=== PATIENT | female | born 2000 | race Caucasian/White ===

== ENCOUNTER 2020-04-19 12:41 | Emergency (ER) | payer OTHER, SELFPAY ==
[2020-04-19 12:50] VITALS: BP 117/64; PULSE 83; RESP 16; TEMP 36.6; O2SAT 100
--- NOTE | 2020-04-19 13:10 | ED.URI ---
HPI - URI/Sore Throat General Chief Complaint: Upper Respiratory Infection Stated Complaint: sore throat/cough/right ear pain Time Seen by Provider: 04/19/20 13:10 Source: patient Mode of arrival: ambulatory Limitations: no limitations History of Present Illness HPI Narrative: Sunita Hackett is a 19 yo female with c/o sore throat and cough, R ear pain x 3 days. Has taken an antihistamine which did not help Related Data Home Medications Medication Instructions Recorded Confirmed medroxyprogesterone [Depo-Provera] 150 mg IM [id number] 04/19/20 04/19/20 Allergies Allergy/AdvReac Type Severity Reaction Status Date / Time No Known Allergies Allergy Verified 04/19/20 13:12 Review of Systems Review of Systems: Narrative: CONSTITUTIONAL: Denies fever, chills, sweats. EYES: Denies visual changes, redness, discharge. ENT: Denies rhinorrhea, congestion, has sore throat, R otalgia. CARDIOVASCULAR: Denies chest pain, palpitations, edema. RESPIRATORY: Denies dyspnea, wheezing, productive cough GASTROINTESTINAL: Denies abdominal pain, nausea, vomiting, diarrhea. GENITOURINARY: Denies dysuria, hematuria, abnormal discharge SKIN: Denies rash or itching. NEUROLOGIC: Denies numbness, or focal weakness. PSYCHIATRIC: Denies anxiety or depression. [facility] Family History Family History (Updated 04/19/20 @ 13:14 by Colleen Bartlett CNP) Other No active medical problems Social History Social History (Updated 04/19/20 @ 13:14 by Colleen Bartlett CNP) Smoking status: Current every day smoker Tobacco type: e-cigarettes/vaping Comments At time of signature, I agree with nursing past medical, surgical, social and family history. There is no relevant family history pertinent to the presenting complaint. Exam Narrative: Exam Narrative: GENERAL: This is a well-nourished, well-developed patient, in mild distress. HEAD: normocephalic, atraumatic. EYES: Sclera clear/white. Vision is grossly intact. EARS: External ears normal, auditory canals clear mild erythema on R, TMs normal without perforation. Hearing grossly intact. NOSE: External nose normal without nasal discharge, nares without redness, with rhinorrhea. THROAT: Mucous membranes moist, posterior pharynx erythema, no exudate NECK: Neck supple, CARDIOVASCULAR: Regular rate and rhythm without murmurs, gallops, or rubs. RESPIRATORY: Coarse to auscultation. Breath sounds equal bilaterally. No wheezes, rales, or rhonchi. GASTROINTESTINAL: Abdomen soft, SKIN: warm, intact with no suspicious lesions or rash, good texture and turgor. NEURO: awake, alert, and oriented to person, place and time. There were no obvious focal neurologic abnormalities. Steady gait EXTREMITIES: Normal range of motion. BACK: Nontender without deformity Course Course Emergency Course: Strep test-negative Started on prednisone, cough medicine, Sudafed Patient encouraged to hydrate Vital Signs Vital signs: Vital Signs Temperature 97.9 F 04/19/20 12:50 Pulse Rate 83 04/19/20 12:50 Respiratory Rate 16 04/19/20 12:50 Blood Pressure 117/64 04/19/20 12:50 Pulse Oximetry 100 04/19/20 12:50 Temperature 97.9 F 04/19/20 12:50 Pulse Rate 83 04/19/20 12:50 Respiratory Rate 16 04/19/20 12:50 Blood Pressure 117/64 04/19/20 12:50 Pulse Oximetry 100 04/19/20 12:50 MDM - URI/Sore Throat Differential Diagnosis Differential diagnosis: Likely upper respiratory infection, sinusitis, pharyngitis and other Lab Data Labs: Strep Screen Presumptive Negative *(Reference Range: Negative)* Discharge Plan Discharge Clinical Impression: Pharyngitis Qualifiers: Pharyngitis/tonsillitis etiology: unspecified etiology Qualified Code(s): J02.9 - Acute pharyngitis, unspecified Otitis media Qualifiers: Otitis media type: suppurative Chronicity: acute Laterality: right Recurrence: non-recurrent Qualified Code(s): H66.001 - Acute suppurative otitis med
== END 2020-04-19 13:30 | disposition home or self-care (01) ==
PROVIDERS: Emergency Provider Nurse Practitioner
DX: J02.9 Acute pharyngitis, unspecified (principal); H66.001 Acute suppurative otitis media without spontaneous rupture of ear drum, right ear; F17.200 Nicotine dependence, unspecified, uncomplicated
CPT/HCPCS: 87081; 87880; 99213; G0463

== ENCOUNTER 2020-05-10 12:04 | Emergency (ER) | payer SELFPAY ==
--- NOTE | 2020-05-10 12:07 | ED.GENADULT ---
HPI - General Adult General Chief complaint: Nausea/Vomiting/Diarrhea Stated complaint: Abdominal Pain Time Seen by Provider: 05/10/20 12:29 Source: patient Mode of arrival: ambulatory Limitations: no limitations History of Present Illness HPI narrative: 19-year-old female patient presents to the [facility] with complaints of nausea vomiting for the past 2 days. Patient states she vomited the other day about 8 times not having vomiting yesterday or today but is still feels somewhat nauseated. Patient states she was able to eat today and keep it down. Patient unsure if she was . Patient states that she has been off her Depakote for over 6 months now and has not had a period since January and she is sexually active. Denies any pain with urination, abdominal pain, low back pain. Denies any fevers, sore throat. Related Data Allergies Allergy/AdvReac Type Severity Reaction Status Date / Time No Known Allergies Allergy Verified 04/19/20 13:12 Review of Systems Review of Systems: Narrative: CONSTITUTIONAL: Denies fever, chills, positive sweats. EYES: Denies visual changes, redness, or discharge. ENT: Denies rhinorrhea, congestion, sore throat, or otalgia. CARDIOVASCULAR: Denies chest pain, palpitations, or edema. RESPIRATORY: Denies cough or dyspnea. GASTROINTESTINAL: Denies abdominal pain, positive nausea, vomiting, denies diarrhea. GENITOURINARY: Denies dysuria or hematuria. SKIN: Denies rash or itching. MUSCULOSKELETAL: Denies back pain, joint pain, or myalgia. NEUROLOGIC: Denies headache, numbness, or weakness. PSYCHIATRIC: Denies anxiety or depression. PMFSH Family History Family History Other No active medical problems Social History Social History Smoking status: Current every day smoker Tobacco type: e-cigarettes/vaping Comments At the time of my signature I agree with nursing past medical history, surgical, social, and family history. There is no relevant family history pertinent to the presenting complaint. Exam Narrative: Exam Narrative: GENERAL: Well-appearing, well-nourished, and in no acute distress. HEAD: Normocephalic, atraumatic. EYES: PERRLA and EOMI. ENT: Nares clear, no rhinorrhea or epistaxis. Mucous membranes moist. NECK: Supple. No lymphadenopathy CHEST: Clear to auscultation. No respiratory distress. HEART: Regular rate and rhythm. No murmur heard. Normal peripheral pulses. ABDOMEN: Soft, flat, nondistended. No guarding, rebound tenderness, or rigid. No pulsatilla masses. Hyperactive bowel sounds present in all four quadrants. No organomegaly. Negative Hough?s sign. No periumbicial tenderness. No Supra public tenderness or distension. Good femoral pulses bilaterally. No hernia noted. No scars or surface trauma. No CVA tenderness on percussion EXTREMITIES: Normal range of motion. No edema. SKIN: Warm, dry, no rash. NEURO: No focal deficits. Alert and oriented x3. Course Vital Signs Vital signs: Vital Signs Temperature 36.9 C 05/10/20 12:17 Pulse Rate 93 05/10/20 12:17 Respiratory Rate 16 05/10/20 12:17 Blood Pressure 105/61 05/10/20 12:17 Pulse Oximetry 100 05/10/20 12:17 Temperature 36.9 C 05/10/20 12:17 Pulse Rate 93 05/10/20 12:17 Respiratory Rate 16 05/10/20 12:17 Blood Pressure 105/61 05/10/20 12:17 Pulse Oximetry 100 05/10/20 12:17 Vital signs reviewed. Medical Decision Making Differential Diagnosis Differential Diagnosis: Differential diagnosis: Appendicitis, ovarian torsion, gallbladder disease, ovarian torsion, pancreatitis, lower lobe pneumonia,AAA, AMI or ACS, DKA, diverticulitis. Discussed with patient we will go ahead and do a test on her and if it is negative we will go ahead and treat her with some Zofran today. I will reassess her once this is resulted. Vital Signs Vital Signs: Vital Signs Temperature
[2020-05-10 12:17] VITALS: BP 105/61; PULSE 93; RESP 16; TEMP 36.9; O2SAT 100
[2020-05-10] MEDS: ONDANSETRON HCL ODT 4 MG TABLET PO (12:43)
== END 2020-05-10 13:07 | disposition home or self-care (01) ==
PROVIDERS: Emergency Provider Nurse Practitioner Family
DX: R11.2 Nausea with vomiting, unspecified (principal); F17.200 Nicotine dependence, unspecified, uncomplicated
CPT/HCPCS: 81025; 99213; A9270; G0463

== ENCOUNTER 2021-07-02 12:21 | Emergency (ER) | payer OTHER, SELFPAY ==
[2021-07-02 12:27] VITALS: BP 118/71; PULSE 93; RESP 16; TEMP 36.6; O2SAT 98
[2021-07-02 12:36] VITALS: BP 118/71; PULSE 93; RESP 16; TEMP 36.6; O2SAT 98
--- NOTE | 2021-07-02 12:50 | ED.URI ---
HPI - URI/Sore Throat General Chief Complaint: Upper Respiratory Infection Stated Complaint: sore throat ears and diahhrea Time Seen by Provider: 07/02/21 12:51 Source: patient Mode of arrival: ambulatory Limitations: no limitations History of Present Illness HPI Narrative: Sunita Hackett is a 20 yo female with no PMH who comes to [facility] with complaints of sore throat and difficulty swallowing. Her sore throat started again yesterday and this morning when she woke up she had difficulties swallowing and states she had a subjective fever. Patient did not get relief toothbrush after being treated a couple weeks ago, although amoxicillin seem to work a couple weeks ago Patient does not had Covid vaccine Related Data Allergies Allergy/AdvReac Type Severity Reaction Status Date / Time No Known Allergies Allergy Verified 04/19/20 13:12 Review of Systems Review of Systems: CONSTITUTIONAL: Denies fever, chills, sweats. EYES: Denies visual changes, redness, discharge. ENT: Denies rhinorrhea, congestion, has sore throat, otalgia. CARDIOVASCULAR: Denies chest pain, palpitations, edema. RESPIRATORY: Denies dyspnea, wheezing, cough GASTROINTESTINAL: Denies abdominal pain, nausea, vomiting, diarrhea. GENITOURINARY: Denies dysuria, hematuria, abnormal discharge SKIN: Denies rash or itching. NEUROLOGIC: Denies numbness, or focal weakness. PSYCHIATRIC: Denies anxiety or depression. [facility] Past Medical History Medical History No acute medical problems Family History Family History Other No active medical problems Social History Social History Smoking status: Current every day smoker Tobacco type: e-cigarettes/vaping Comments At time of signature, I agree with nursing past medical, surgical, social and family history. There is no relevant family history pertinent to the presenting complaint. Exam Narrative: GENERAL: This is a well-nourished, well-developed patient, in mild distress. HEAD: normocephalic, atraumatic. EYES: P Sclera clear/white. Vision is grossly intact. EARS: External ears normal, auditory canals clear and without drainage, TMs normal without perforation. Hearing grossly intact. NOSE: External nose normal without nasal discharge, nares without redness, mild rhinorrhea. THROAT: Mucous membranes moist, posterior pharynx erythematous with 2+ edema NECK: Neck supple, non-tender CARDIOVASCULAR: Regular rate and rhythm without murmurs, gallops, or rubs. RESPIRATORY: Clear to auscultation. Breath sounds equal bilaterally. No wheezes, rales, or rhonchi. GASTROINTESTINAL: Abdomen soft, SKIN: warm, intact with no suspicious lesions or rash, good texture and turgor. NEURO: awake, alert, and oriented to person, place and time. There were no obvious focal neurologic abnormalities. Steady gait EXTREMITIES: Normal range of motion. BACK: Nontender without deformity Course Course Emergency Course: [facility] of sore throat and swollen Started on Zithromax since took amoxicillin 2 weeks ago Directions given to patient to get rid of tooth brush and take medication as prescribed Vital Signs Vital signs: Vital Signs Temperature 98 F 07/02/21 12:27 Pulse Rate 93 07/02/21 12:27 Respiratory Rate 16 07/02/21 12:27 Blood Pressure 118/71 07/02/21 12:27 Pulse Oximetry 98 07/02/21 12:27 Temperature 98 F 07/02/21 12:36 Pulse Rate 93 07/02/21 12:36 Respiratory Rate 16 07/02/21 12:36 Blood Pressure 118/71 07/02/21 12:36 Pulse Oximetry 98 07/02/21 12:36 MDM - URI/Sore Throat Differential Diagnosis Differential diagnosis: Likely upper respiratory infection, sinusitis, viral infection, pharyngitis and other Lab Data Labs: Strep Screen Presumptive Negative
== END 2021-07-02 13:12 | disposition home or self-care (01) ==
PROVIDERS: Emergency Provider Nurse Practitioner
DX: J02.9 Acute pharyngitis, unspecified (principal); F17.200 Nicotine dependence, unspecified, uncomplicated
CPT/HCPCS: 87081; 87880; 99213; G0463

== ENCOUNTER 2022-11-16 16:12 | Outpatient (CLI) | payer BC, SELFPAY ==
[2022-11-16 17:05] VITALS: BP 139/78; PULSE 74
[2022-11-16 17:11] LABS: Appearance Urine Slightly Cloudy (Clear); Basophils Percent Auto 0.1 % (0.2-1.2); Bilirubin Urine Negative (Negative); Blood Urine Negative (Negative); Color Urine Light Yellow (Yellow); Eosinophils Absolute Auto 0.1 K/mm3 (0-0.3); Eosinophils Percent Auto 0.8 % (0-4.4); Glucose Urine UA Negative (Negative); Hematocrit 32.1 % (37.0-47.0); Hemoglobin 11.1 g/dL (12.0-15.0); Immature Granulocyte Absolute 0.02 K/mm3 (0.00-0.031); Immature Granulocyte Percent A 0.3 % (0-0.5); Ketones Urine Negative (Negative); Leukocyte Esterase Ur Negative LEU/UL (NEGATIVE); Lymphocytes Absolute Auto 2.26 K/mm3 (0.9-3.2); Lymphocytes Percent Auto 28.3 % (18.3-44.2); Mean Corpuscular HGB Conc 34.6 g/dl (32-36); Mean Corpuscular Volume 95.5 fl (80-100); Mean Platelet Volume 10.4 fl (7.4-10.4); Monocytes Absolute Auto 0.7 K/mm3 (0.1-0.6); Monocytes Percent Auto 8.3 % (2.6-8.5); Neutrophils Percent Auto 62.2 % (45.5-73.1); Nitrate Urine Negative (Negative); Platelet Count Result 175 k/mm3 (150-375); Protein Urine Negative (Negative); Red Blood Count 3.36 M/mm3 (4.2-5.4); Red Cell Distribution Width 13.3 % (11.5-14.5); Specific Grav Ur 1.015 (1.001-1.035); Urobilinogen Urine 0.2 mg/dL (<2.0)
[2022-11-16 17:15] VITALS: BP 138/73; PULSE 75
[2022-11-16 17:15] LABS: Add Urine Microscopic? YES; Amorphous Sediment Urine Few; Bacteria Urine Trace /hpf; RBC Urine 0-2 /hpf (0-2); Squamous Epithelial Cell Urine Many /hpf (Few); WBC Urine 0-3 /hpf (0-3)
[2022-11-16 17:20] LABS: Alanine Aminotransferase 8 U/L (6-35); Albumin Level 3.6 g/dL (3.5-5.1); Alkaline Phosphatase 93 U/L (38-126); Anion Gap 5 mmol/L (8-16); Aspartate Amino Transferase 19 U/L (14-36); Bilirubin,Total 0.5 mg/dL (0.2-1.3); Blood Urea Nitrogen 6 mg/dL (7-17); Carbon Dioxide 26 mmol/L (22-30); Chloride 103 mmol/L (98-107); Estimated Glomerular Filt Rate > 60; Glucose 94 mg/dL (65-110); Potassium 3.4 mmol/L (3.4-5.0); Sodium 134 mmol/L (137-145); Uric Acid 4.1 mg/dL (2.5-7.5)
[2022-11-16 17:30] VITALS: BP 139/79; PULSE 82
[2022-11-16 17:32] LABS: Creatinine Urine 29.4 mg/dL; Total Protein Urine Random 19 mg/dL; Ur Ttl Prot Creatinine Ratio 0.65 mg/mg (0-0.20)
--- NOTE | 2022-11-16 18:00 | PC.NURSE ---
Constance esparza CNM reviewed tracing, PIH lab result. P/C ratio was pending but Tangela was okay for pt to go home. after pt discharged, P/C ratio came back abnormal. reported Constance Esparza CNM and 24 hour urine order received. Called pt to come back to get 24 hour urine collection kit. Pt will come back after dinner. Tangela suggested to offer pt stay for 2 hour urine collection, but pt requested to go home, give severe preeclampsia precaution. report given to in coming RN, Tana Cerna RN.
== END 2022-11-16 17:45 | disposition home or self-care (01) ==
LOC: ANHOBOP 16:33 → ANHOBPP 16:37
PROVIDERS: Advanced Practice Midwife; Visit Provider Obstetrics & Gynecology
DX: O99.891 Other specified diseases and conditions complicating pregnancy (principal); R03.0 Elevated blood-pressure reading, without diagnosis of hypertension
CPT/HCPCS: 36415; 59025; 80053; 81001; 82570; 84156; 84550; 85025; 87086; 99199

== ENCOUNTER 2022-11-16 20:22 | Observation (INO) | payer BC, SELFPAY ==
[2022-11-16 20:41] VITALS: BP 144/80; PULSE 91
[2022-11-16 20:45] VITALS: BP 140/83; PULSE 88; RESP 16; TEMP 36.3
[2022-11-16 20:47] VITALS: BMI 31.0
--- NOTE | 2022-11-16 20:51 | OBADM ---
This patient, Sunita Guy, admitted to the OB room OB Post 117 for observation. Patient/family oriented to hospital policies and general routines including ID bracelet, bed and alarms, visiting hours, pain management, procedures, bathroom and other care routines, personal items, smoking policy, room service/diet, and visiting hours. Patient/Family are encouraged to report perceived risks to care and to ask questions if they do not understand what they are told or what they should do.
[2022-11-16 21:00] VITALS: BP 142/79; PULSE 90
[2022-11-16 21:29] VITALS: BP 147/82; PULSE 76
[2022-11-16 23:10] VITALS: BP 147/73; PULSE 91
[2022-11-17] VITALS (14 sets, daily range): BP systolic 135–153; BP diastolic 68–87; PULSE 80–97; RESP 18–20; TEMP 36.5–36.6; O2SAT 97
[2022-11-17 08:20] LABS: Mean Platelet Volume 10.4 fl (7.4-10.4); Platelet Count Result 142 k/mm3 (150-375)
--- NOTE | 2022-11-17 08:25 | WPDOBADMIT ---
Obstetrics - Admit Note Admission Note: 22 y/o G1 @ 234 weeks here for elevated blood pressures. record reviewed. No pertinent additions to the history and/or any subsequent changes in the physical findings that are not consistent with the expected course of the were found. Additions to the history and/or subsequent changes in the physical findings follow. None.
[2022-11-17 08:30] LABS: Alanine Aminotransferase 8 U/L (6-35); Albumin Level 3.3 g/dL (3.5-5.1); Alkaline Phosphatase 91 U/L (38-126); Anion Gap 4 mmol/L (8-16); Aspartate Amino Transferase 22 U/L (14-36); Bilirubin,Total 0.5 mg/dL (0.2-1.3); Blood Urea Nitrogen 4 mg/dL (7-17); Calcium 8.2 mg/dL (8.4-10.2); Carbon Dioxide 26 mmol/L (22-30); Chloride 102 mmol/L (98-107); Estimated CRCL calculation 184 ml/min; Estimated Glomerular Filt Rate > 60; Glucose 78 mg/dL (65-110); Sodium 132 mmol/L (137-145)
[2022-11-17] MEDS: BETAMETHASONE SOD PHOS/ACETATE 30 MG/5 ML VIAL 12 MG IM (10:54)
[2022-11-17 14:22] LABS: Platelet Count Result 175 k/mm3 (150-375)
[2022-11-17] MEDS: ACETAMINOPHEN 500 MG TABLET 1000 MG PO (15:03)
[2022-11-17 21:13] LABS: Collection Time Urine 24 HOURS
[2022-11-17 21:22] LABS: Total Protein Urine Random 16 mg/dL
[2022-11-17 21:29] LABS: Specific Gravity Ur 1.015; Total Protein Urine 24 Hr 592 mg/24hr (28-141); Total Volume 24 Hour Urine 3700 ml
[2022-11-17 21:39] LABS: Patient Weight 180 Lbs
[2022-11-17 21:43] LABS: Creatinine Clearance Urine 220.6 ml/min (75-125); Total Volume 24 Hour Urine 3700 ml
--- NOTE | 2022-11-17 23:06 | PC.NURSE ---
Dr Hernández notified of 24 urine results and itching. Orders to Draw bile acids and patient can have Benadryl as needed.
[2022-11-18] VITALS (8 sets, daily range): BP systolic 130–145; BP diastolic 58–71; PULSE 93–103; RESP 16; TEMP 36.4; O2SAT 97–98
[2022-11-18] MEDS: diphenhydrAMINE HCl CAP 25 MG CAPSULE PO (00:45)
--- NOTE | 2022-11-18 07:00 | PC.NURSE ---
Pt is sound asleep.
--- NOTE | 2022-11-18 07:40 | PC.NURSE ---
Roxi Lester CNM in to see pt. Informed pt denies headache and visual changes this morning. Also, no itching this am. Discussed K+ level is 3.0 and pt is having some constipation. Orders received.
--- NOTE | 2022-11-18 07:40 | PM.IMHP ---
H&P: HPI History of Present Illness Date/Time: 11/18/22 07:40 pt is a at 34.2 weeks with now diagnosed preeclampsia, pt had elevated blood pressures and PCR was elevated. 24 hour urine 592. Pt also had some complaints of itching and bile acids were drawn and now pending. Pt currently denies swelling, headache, visual changes, and /or epigastric pain. Pt is awaiting second dose of celestone that will be given this am. has been complicated by history of headaches and Covid infection. 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 Pt has no known criminal justice department chair or surgical history. Chief Complaint: elevated blood pressures, occasional headache relieved with tylenol Review of Systems Review of Systems: All systems reviewed & are unremarkable except as noted in HPI and below PMFSH Past Medical History Medical History No acute medical problems Family History Family History Other No active medical problems Social History Social History Smoking status: Current every day smoker Tobacco type: e-cigarettes/vaping Meds Home Medications and Allergies Home Medications Medication Instructions Recorded Confirmed Type mv-mn no.97-folic 180 mcg-dha 25 1 tablet PO DAILY 11/16/22 11/16/22 History mg-herb no.293 25 mg chewable tablet (Alive Daily Support ) Allergies Allergy/AdvReac Type Severity Reaction Status Date / Time No Known Allergies Allergy Verified 11/16/22 20:44 Vital Signs Vital Signs - 24 hr 11/17/22 08:45 11/17/22 09:00 11/17/22 11:22 Temperature Pulse Rate 88 89 89 Respiratory Rate Blood Pressure 153/87 H 146/85 H 146/74 H Blood Pressure [Left Arm] Pulse Oximetry 11/17/22 14:23 11/17/22 17:30 11/17/22 22:21 Temperature Pulse Rate 86 97 80 Respiratory Rate Blood Pressure 135/68 137/70 141/76 H Blood Pressure [Left Arm] Pulse Oximetry 11/18/22 05:00 11/18/22 07:19 11/18/22 07:34 Temperature Pulse Rate 97 93 Respiratory Rate Blood Pressure 145/64 H 130/58 L Blood Pressure [Left Arm] Pulse Oximetry 98 11/18/22 07:39 11/17/22 09:13 11/17/22 15:03 Temperature 36.6 C Pulse Rate Respiratory Rate Blood Pressure Blood Pressure [Left Arm] 146/85 H Pulse Oximetry 98 11/17/22 17:49 11/17/22 17:49 11/17/22 23:00 Temperature 36.6 C Pulse Rate 97 Respiratory Rate 20 Blood Pressure 137/70 Blood Pressure [Left Arm] 137/70 141/76 H Pulse Oximetry 11/18/22 07:19 Temperature 36.4 C L Pulse Rate Respiratory Rate 16 Blood Pressure Blood Pressure [Left Arm] Pulse Oximetry Exam Const: General: cooperative, healthy appearing and comfortable Chest: Chest palpation & inspection: normal inspection of the chest Resp: Effort & Inspection: normal respiratory effort : General: Yes deferred Skin: General skin exam: normal color Extrem: Right lower extremity: normal to inspection Left lower extremity: normal to inspection Psych: Appearance: grossly normal H&P: Results Labs Labs: Short CBC 11/17/22 11/17/22 Range/Units 07:57 14:03 Plt Count 142 L 175 (150-375) k/mm3 BMP 11/17/22 07:57 Sodium 132 L Potassium 3.0 L Chloride 102 Carbon Dioxide 26 BUN 4 L Creatinine 0.40 L Glucose 78 Calcium 8.2 L Liver Function 11/17/22 Range/Units 07:57 Total Bilirubin 0.5 (0.2-1.3) mg/dL AST 22 (14-36) U/L ALT 8 (6-35) U/L Alkaline Phosphatase 91 (38-126) U/L Albumin 3.3 L (3.5-5.1) g/dL Assessment and Plan Assessment and plan (1) Preeclampsia: Code(s): O14.90 - Unspecified pre-eclampsia, unspecified trimester Status: Acute Plan at 34.2 weeks gestation 1. preeclampsia plan 2 x week NST testing in office PLAN 37 week IOL
[2022-11-18] MEDS: POTASSIUM CHLORIDE 20 MEQ TABLET 40 MEQ PO (08:54)
--- NOTE | 2022-11-18 08:54 | PC.NURSE ---
Pt had fallen back to sleep after breakfast until I came in with her KCL supplement.
[2022-11-18] MEDS: DOCUSATE SODIUM 100 MG CAPSULE PO (08:57)
[2022-11-18] MEDS: BETAMETHASONE SOD PHOS/ACETATE 30 MG/5 ML VIAL 12 MG IM (11:02)
--- NOTE | 2022-11-20 07:26 | PM.OBTRLD ---
OB - Triage/Final Diagnosis Visit Information Date of evaluation: 11/17/22 Reason for evaluation: other (elevated bp) Comments/Additional reasons for admission: I have assessed the risk for this patient, Sunita Varela Malena, and determined that she would benefit from observation care. Evaluation Laboratory results: Laboratory Tests 11/17/22 11/17/22 11/17/22 07:57 07:57 14:03 Plt Count 142 L 175 MPV 10.4 11.0 H Sodium 132 L Potassium 3.0 L Chloride 102 Carbon Dioxide 26 Anion Gap 4 L BUN 4 L Creatinine 0.40 L Estim Creat Clear Calc 184 Estimated GFR > 60 Glucose 78 Uric Acid 4.0 Calcium 8.2 L Total Bilirubin 0.5 AST 22 ALT 8 Alkaline Phosphatase 91 Total Protein 6.0 L Albumin 3.3 L U Random Total Protein Ur 24 Hour Volume Urine Creatinine Creatinine Clearance Ur Total Protein 24 Hr 11/17/22 11/17/22 20:56 20:56 Plt Count MPV Sodium Potassium Chloride Carbon Dioxide Anion Gap BUN Creatinine Estim Creat Clear Calc Estimated GFR Glucose Uric Acid Calcium Total Bilirubin AST ALT Alkaline Phosphatase Total Protein Albumin U Random Total Protein 16 Ur 24 Hour Volume 3700 3700 Urine Creatinine 37.0 Creatinine Clearance 220.6 H Ur Total Protein 24 Hr 592 H
[2022-11-25 12:32] LABS: Chenodeoxycholic Acid 0.6 umol/L (< OR = 3.9); Cholic Acid <0.5 umol/L (< OR = 2.8); Deoxycholic Acid 0.5 umol/L (< OR = 2.3); Total Bile Acids <1.5 umol/L (< OR = 8.3)
== END 2022-11-18 11:23 | disposition home or self-care (01) ==
PROVIDERS: Advanced Practice Midwife; Obstetrics & Gynecology; Admitting Provider Obstetrics & Gynecology; Visit Provider Obstetrics & Gynecology
DX: O14.93 Unspecified pre-eclampsia, third trimester (principal); O99.333 Smoking (tobacco) complicating pregnancy, third trimester; F17.290 Nicotine dependence, other tobacco product, uncomplicated; O26.893 Other specified pregnancy related conditions, third trimester; L29.9 Pruritus, unspecified; O99.283 Endocrine, nutritional and metabolic diseases complicating pregnancy, third trimester; E87.6 Hypokalemia; Z3A.34 34 weeks gestation of pregnancy
CPT/HCPCS: 36415; 59025; 80053; 81050; 82542; 82575; 84156; 84550; 85049; 96372; A9270; G0378; G0379; J0702

== ENCOUNTER 2022-11-18 14:23 | Observation (INO) | payer BC, SELFPAY ==
[2022-11-18] VITALS (45 sets, daily range): BP systolic 132–157; BP diastolic 70–87; PULSE 77–101; TEMP 37.2–37.4; O2SAT 94–99; BMI 30.9
--- NOTE | ~2022-11-18 | US_ITS ---
EXAMINATION: US OB limited w BPP DATE: 11/18/2022 19:28 INDICATION: TECHNIQUE: Real-time ultrasound of the pelvis was performed. COMPARISON: None. FINDINGS: There is a single living fetus in vertex presentation, longitudinal lie. The placenta is anterior. F etal heart rate is 137 beats per minute (bpm). The amniotic fluid index is 9.3 cm, which is normal. Biophysical profile performed by the technologist: breathing (30 sec sustained breathing in 30 minutes): 2 out of 2 movement (3 gross body movements in 30 minutes: 2 out of 2 tone (one episode of eldwwif-rhzevveap-xebvbbr limb movement): 2 out of 2 Amniotic fluid pocket (2 cm): 2 out of 2 Total score: 8 out of 8 IMPRESSION: 1. Single living fetus in vertex presentation. 2. Anterior placenta. 3. Biophysical profile 8 out of 8. 4. DONALD 9.3 Reviewed, dictated and finalized at location [facility]
--- NOTE | 2022-11-18 14:50 | OBADM ---
This patient, Sunita Guy, admitted to the OB room 117 for observation. Patient/family oriented to hospital policies and general routines including ID bracelet, bed and alarms, visiting hours, pain management, procedures, bathroom and other care routines, personal items, smoking policy, room service/diet, and visiting hours. Patient/Family are encouraged to report perceived risks to care and to ask questions if they do not understand what they are told or what they should do.
[2022-11-18] MEDS: ACETAMINOPHEN 500 MG TABLET 1000 MG PO (15:32)
--- NOTE | 2022-11-18 16:05 | PC.NURSE ---
Back pain worse again; bacl up to an 8 out of 10. Hasn't been an hour since Tylenol was given.
--- NOTE | 2022-11-18 16:30 | PC.NURSE ---
Back pain back down to a 5 out of 10. Pt wants to give the Tylenol and heat longer to see if any improvement. Pt to call if she wants the Flexeril before I return to her room.
[2022-11-18] MEDS: CYCLOBENZAPRINE HCL 10 MG TABLET PO (17:04)
--- NOTE | 2022-11-18 17:04 | PC.NURSE ---
Pt states back pain is fluctuating between a 5 and an 8; requesting Flexeril.
--- NOTE | 2022-11-18 17:09 | PC.NURSE ---
Pt ordered dinner.
--- NOTE | 2022-11-20 12:23 | PM.OBTRLD ---
OB - Triage/Final Diagnosis Visit Information Date of evaluation: 11/20/22 Reason for evaluation: other (elevated BP) Comments/Additional reasons for admission: I have assessed the risk for this patient, Sunita Guy, and determined that she would benefit from observation care.
== END 2022-11-18 20:25 | disposition home or self-care (01) ==
PROVIDERS: Admitting Provider Obstetrics & Gynecology; Visit Provider Obstetrics & Gynecology
DX: O16.3 Unspecified maternal hypertension, third trimester (principal); Z3A.34 34 weeks gestation of pregnancy
CPT/HCPCS: 76815; 76819; A9270; G0378; G0379

== ENCOUNTER 2022-11-19 18:56 | Outpatient (CLI) | payer BC, SELFPAY ==
[2022-11-19] VITALS (7 sets, daily range): BP systolic 146–153; BP diastolic 77–88; PULSE 70–85; BMI 31.0
--- NOTE | 2022-11-19 19:00 | OBADM ---
This patient, Sunita Guy, admitted to the OB room OB Post 115 for observation. Patient/family oriented to hospital policies and general routines including ID bracelet, bed and alarms, visiting hours, pain management, procedures, bathroom and other care routines, personal items, smoking policy, room service/diet, and visiting hours. Patient/Family are encouraged to report perceived risks to care and to ask questions if they do not understand what they are told or what they should do.
--- NOTE | 2022-11-19 19:52 | PC.NURSE ---
Dr Brasher notified of patient c/o elevated BP at home, Patient states it was in the 160's/80-90's. Informed of labs values from prior adm, orders to keep overnight. Bp's q4 while asleep, NST Q shift.
--- NOTE | 2022-11-19 22:11 | PC.NURSE ---
Patient states that her headache is getting worse and is now having some upper abd pain on her R side.
--- NOTE | 2022-11-19 22:12 | PC.NURSE ---
Dr Brasher notified of increase in headache and rating pain a 8/10 and upper R abd pain. Orders to draw labs now and pain medication ordered.
[2022-11-19] MEDS: CALCIUM CARBONATE (TUMS) 500 MG (200 MG ELEMENTAL) 400 MG PO (22:38)
[2022-11-19] MEDS: HYDROcodone/acetaminophen (*CRX) 5-325 MG TABLET 1 TAB PO (22:39)
[2022-11-19 23:03] LABS: Basophils Percent Auto 0.2 % (0.2-1.2); Eosinophils Percent Auto 0.1 % (0-4.4); Hematocrit 32.7 % (37.0-47.0); Immature Granulocyte Absolute 0.11 K/mm3 (0.00-0.031); Immature Granulocyte Percent A 0.8 % (0-0.5); Lymphocytes Percent Auto 18.9 % (18.3-44.2); Mean Corpuscular HGB Conc 33.6 g/dl (32-36); Mean Corpuscular Hemoglobin 32.6 pg (26-34); Mean Platelet Volume 11.1 fl (7.4-10.4); Monocytes Absolute Auto 1.2 K/mm3 (0.1-0.6); Monocytes Percent Auto 8.3 % (2.6-8.5); Neutrophils Absolute Auto 9.9 K/mm3 (1.3-6.7); Neutrophils Percent Auto 71.7 % (45.5-73.1); Platelet Count Result 173 k/mm3 (150-375); Red Blood Count 3.37 M/mm3 (4.2-5.4); Red Cell Distribution Width 13.4 % (11.5-14.5); White Blood Count 13.8 K/mm3 (4.5-10.0)
[2022-11-19 23:12] LABS: Alanine Aminotransferase 10 U/L (6-35); Alkaline Phosphatase 97 U/L (38-126); Anion Gap 6 mmol/L (8-16); Aspartate Amino Transferase 20 U/L (14-36); Bilirubin,Total 0.4 mg/dL (0.2-1.3); Blood Urea Nitrogen 4 mg/dL (7-17); Calcium 8.4 mg/dL (8.4-10.2); Carbon Dioxide 26 mmol/L (22-30); Chloride 104 mmol/L (98-107); Estimated CRCL calculation 184 ml/min; Estimated Glomerular Filt Rate > 60; Glucose 90 mg/dL (65-110); Sodium 136 mmol/L (137-145); Uric Acid 3.1 mg/dL (2.5-7.5)
--- NOTE | 2022-11-20 00:32 | PC.NURSE ---
Addendum entered by Annie Null RN 11/20/22 00:33: Assessed at 2330 Original Note: Patient resting with eye closed, resp even.
[2022-11-20 01:28] VITALS: BP 139/75; PULSE 75
[2022-11-20] MEDS: ACETAMINOPHEN 325 MG TABLET 650 MG PO (01:30)
--- NOTE | 2022-11-20 01:30 | PC.NURSE ---
Patient called out after waking up, states that she still has a headache currently rating per headache a 6/8, says that it is a little better than earlier. Discussed additional dose of Tylenol, patient agreeable.
--- NOTE | 2022-11-20 02:35 | PC.NURSE ---
Patient resting with eyes closed, resp even.
[2022-11-20 06:14] VITALS: BP 145/78; PULSE 78
[2022-11-20 08:04] VITALS: BP 152/84; PULSE 89; TEMP 37
[2022-11-20] MEDS: CALCIUM CARBONATE (TUMS) 500 MG (200 MG ELEMENTAL) 400 MG PO (08:04)
--- NOTE | 2022-11-20 08:37 | PM.IMHP ---
H&P: HPI History of Present Illness Date/Time: 11/20/22 08:37 Chief Complaint: Elevated blood pressures Narrative: this patient is a 22-year-old 1 at 34 and 4 /th weeks. She has been diagnosed with preeclampsia. It is mild. She did report headaches last night. They resolved with the some pain medication. She had some blood pressures at home in the 160s. Her blood pressures here in Labor and delivery during observation, extended observation. , were in the 140s-150s over 90s. she has normal laboratory evaluation for severe preeclampsia and HELLP syndrome. She had some epigastric pain that resolved with antacids. She had some swelling that is improved with rest. She is not working at home. She has a blood pressure cuff at home. She was given thorough severe preeclampsia precautions today. Reviewed the headache and vision changes associated with preeclampsia. She has short-term follow-up in 3 days. The office. Review of Systems Review of Systems: All systems reviewed & are unremarkable except as noted in HPI and below Constitutional: Constitutional: Denies chills, Denies fatigue, Denies fever(s) and Denies weakness Eyes: Eyes: Denies blurry vision, Denies change in vision, Denies loss of peripheral vision, Denies loss of vision, Denies other visual disturbances and Denies eye pain ENT: Denies vertigo, Denies dizziness, Denies hearing loss, Denies mouth pain, Denies nasal obstruction, Denies neck mass and Denies neck pain Cardiovascular: Cardiovascular: Denies chest pain, Denies diaphoresis, Denies syncope, Denies leg edema and Denies dyspnea Respiratory: Respiratory: Denies chest congestion, Denies cough, Denies hemoptysis, Denies dyspnea and Denies wheezing Gastrointestinal: Gastrointestinal: Denies abdominal pain, Denies constipation, Denies diarrhea, Denies nausea and Denies vomiting Genitourinary: Genitourinary: Denies hematuria, Denies change in libido, Denies nocturia, Denies genital lesions, Denies flank pain and Denies urinary urgency Musculoskeletal: Musculoskeletal: Denies abnormal gait, Denies back pain, Denies myalgias, Denies arthralgias, Denies joint swelling, Denies muscle weakness and Denies neck pain Integumentary/Breasts: Skin/Breast: Denies swelling, Denies breast pain, Denies breast mass, Denies dry skin, Denies nipple discharge, Denies unusual bruising and Denies jaundice Neurologic: Denies Neuro-related abnormal movements, Denies Abnormal speech present, Denies abnormal gait, Denies behavioral changes, Denies confusion, Denies vertigo, Denies dizziness, Denies syncope, Denies loss of vision, Denies memory loss, Denies convulsions and Denies weakness Psychiatric: Psychiatric: Denies abnormal sleep pattern, Denies behavioral changes, Denies change in libido, Denies confusion, Denies depression, Denies anhedonia and Denies memory loss Endocrine: Endocrine: Reports no additional endocrine complaints, Denies change in libido and Denies fatigue Hematologic/Lymphatic: Hematologic/Lymphatic: Reports no additional hematologic/lymphatic complaints Allergic/Immunologic: Allergic/Immunologic: Reports no additional allergic/immunologic complaints and Denies wheezing PMFSH Past Medical History Medical History No acute medical problems Family History Family History Other No active medical problems Social History Social History Smoking status: Current every day smoker Tobacco type: e-cigarettes/vaping Meds Home Medications and Allergies Home Medications Medication Instructions Recorded Confirmed Type mv-mn no.97-folic 180 mcg-dha 25 1 tablet PO DAILY 11/16/22 11/18/22 History mg-herb no.293 25 mg chewable tablet (Alive Daily Support ) acetaminophen 500 mg tablet 1,000 mg PO Q6H PRN Mild Pain 11/18/22
[2022-11-20 08:54] VITALS: BP 152/84; PULSE 91
== END 2022-11-20 08:55 | disposition home or self-care (01) ==
LOC: ANHOBOP 19:00 → ANHOBPP 11-20 08:41
PROVIDERS: Visit Provider Obstetrics & Gynecology
DX: O13.9 Gestational [pregnancy-induced] hypertension without significant proteinuria, unspecified trimester (principal); Z3A.00 Weeks of gestation of pregnancy not specified
CPT/HCPCS: 36415; 59025; 80053; 84550; 85025; 99199; A9270

== ENCOUNTER 2022-11-22 23:30 | Observation (INO) | payer BC, SELFPAY ==
[2022-11-22] VITALS (7 sets, daily range): BP systolic 143–153; BP diastolic 76–85; PULSE 79–88; RESP 16; TEMP 36.9
[2022-11-22 22:59] LABS: Basophils Percent Auto 0.2 % (0.2-1.2); Eosinophils Absolute Auto 0.1 K/mm3 (0-0.3); Eosinophils Percent Auto 0.6 % (0-4.4); Hematocrit 31.2 % (37.0-47.0); Hemoglobin 10.9 g/dL (12.0-15.0); Immature Granulocyte Absolute 0.05 K/mm3 (0.00-0.031); Immature Granulocyte Percent A 0.5 % (0-0.5); Lymphocytes Percent Auto 32.5 % (18.3-44.2); Mean Corpuscular HGB Conc 34.9 g/dl (32-36); Mean Corpuscular Volume 94.5 fl (80-100); Mean Platelet Volume 11.1 fl (7.4-10.4); Monocytes Absolute Auto 0.7 K/mm3 (0.1-0.6); Monocytes Percent Auto 7.3 % (2.6-8.5); Neutrophils Absolute Auto 5.6 K/mm3 (1.3-6.7); Neutrophils Percent Auto 58.9 % (45.5-73.1); Platelet Count Result 187 k/mm3 (150-375); Red Cell Distribution Width 13.3 % (11.5-14.5); White Blood Count 9.6 K/mm3 (4.5-10.0)
[2022-11-22 23:03] LABS: Appearance Urine Clear (Clear); Bilirubin Urine Negative (Negative); Blood Urine Negative (Negative); Color Urine Yellow (Yellow); Glucose Urine UA Negative (Negative); Ketones Urine Negative (Negative); Leukocyte Esterase Ur Negative LEU/UL (NEGATIVE); Nitrate Urine Negative (Negative); Protein Urine Negative (Negative); Specific Grav Ur 1.015 (1.001-1.035); Urobilinogen Urine 0.2 mg/dL (<2.0)
[2022-11-22 23:13] LABS: Alanine Aminotransferase 10 U/L (6-35); Albumin Level 3.4 g/dL (3.5-5.1); Alkaline Phosphatase 95 U/L (38-126); Anion Gap 6 mmol/L (8-16); Aspartate Amino Transferase 16 U/L (14-36); Bilirubin,Total 0.4 mg/dL (0.2-1.3); Blood Urea Nitrogen 5 mg/dL (7-17); Calcium 8.7 mg/dL (8.4-10.2); Carbon Dioxide 24 mmol/L (22-30); Chloride 103 mmol/L (98-107); Estimated Glomerular Filt Rate > 60; Glucose 133 mg/dL (65-110); Sodium 133 mmol/L (137-145); Uric Acid 3.3 mg/dL (2.5-7.5)
[2022-11-22 23:15] LABS: Creatinine Urine 31.6 mg/dL; Total Protein Urine Random 32 mg/dL; Ur Ttl Prot Creatinine Ratio 1.01 mg/mg (0-0.20)
--- NOTE | 2022-11-22 23:15 | PC.NURSE ---
Pt reportselevated BP at home of 168/90, blurred vision while at home watching TV but none now, HORNER since Wednesday and has been tking 100 mg of tylenol. Pt reports headaches 6/10 currently and last took tylenol at 1230. Pt also reports mid abd pain that comes and goes but none currently.
[2022-11-22 23:16] LABS: Bacteria Urine 2+ /hpf; RBC Urine 0-2 /hpf (0-2); Squamous Epithelial Cell Urine Many /hpf (Few); WBC Urine 0-3 /hpf (0-3)
[2022-11-22 23:18] LABS: Add Urine Microscopic? NO
--- NOTE | 2022-11-22 23:30 | PC.NURSE ---
Report given to Roxi Lester via phone. Labs, vitals signs, and symptoms reviewed with Roxi Lester. Orders to keep patient over night. Give Fioricet for headache. Take Blood pressures every hour while patient is awake and not to take vitals while patient is sleeping. Keep monitoring baby over night. Redraw labs at 0600 tomorrow morning.
[2022-11-23] VITALS (8 sets, daily range): BP systolic 133–149; BP diastolic 76–93; PULSE 79–99; BMI 31.0
[2022-11-23] MEDS: ACETAMINOPHEN/BUTALBITAL/CAFFEINE 325-50-40 MG TABLET (FIORICET) 1 TAB PO (00:13)
--- NOTE | 2022-11-23 02:00 | PC.NURSE ---
Pt is sleeping.
[2022-11-23 06:18] LABS: Basophils Percent Auto 0.2 % (0.2-1.2); Eosinophils Absolute Auto 0.1 K/mm3 (0-0.3); Eosinophils Percent Auto 0.7 % (0-4.4); Hematocrit 31.4 % (37.0-47.0); Hemoglobin 10.8 g/dL (12.0-15.0); Immature Granulocyte Absolute 0.06 K/mm3 (0.00-0.031); Immature Granulocyte Percent A 0.6 % (0-0.5); Lymphocytes Absolute Auto 3.53 K/mm3 (0.9-3.2); Lymphocytes Percent Auto 34.7 % (18.3-44.2); Mean Corpuscular HGB Conc 34.4 g/dl (32-36); Mean Corpuscular Hemoglobin 32.5 pg (26-34); Mean Corpuscular Volume 94.6 fl (80-100); Mean Platelet Volume 10.8 fl (7.4-10.4); Monocytes Absolute Auto 0.8 K/mm3 (0.1-0.6); Neutrophils Absolute Auto 5.7 K/mm3 (1.3-6.7); Neutrophils Percent Auto 55.8 % (45.5-73.1); Platelet Count Result 172 k/mm3 (150-375); Red Blood Count 3.32 M/mm3 (4.2-5.4); Red Cell Distribution Width 13.2 % (11.5-14.5); White Blood Count 10.2 K/mm3 (4.5-10.0)
[2022-11-23 06:30] LABS: Alanine Aminotransferase 9 U/L (6-35); Albumin Level 3.3 g/dL (3.5-5.1); Alkaline Phosphatase 88 U/L (38-126); Anion Gap 6 mmol/L (8-16); Aspartate Amino Transferase 20 U/L (14-36); Bilirubin,Total 0.5 mg/dL (0.2-1.3); Blood Urea Nitrogen 4 mg/dL (7-17); Calcium 8.4 mg/dL (8.4-10.2); Carbon Dioxide 22 mmol/L (22-30); Chloride 106 mmol/L (98-107); Estimated Glomerular Filt Rate > 60; Glucose 85 mg/dL (65-110); Potassium 3.5 mmol/L (3.4-5.0); Sodium 134 mmol/L (137-145); Uric Acid 3.4 mg/dL (2.5-7.5)
--- NOTE | 2022-11-23 06:39 | PC.NURSE ---
Report givent to JT Pelayo
[2022-11-23 06:54] LABS: Creatinine Urine 24.3 mg/dL; Total Protein Urine Random 21 mg/dL; Ur Ttl Prot Creatinine Ratio 0.86 mg/mg (0-0.20)
--- NOTE | 2022-11-23 06:56 | LDADM ---
This patient, Sunita Guy, was admitted to [facility] on 11/22/22 at 23:30. Plans for labor, pain management and were discussed with patient. Patient/family oriented to hospital policies and general routines including ID bracelet, bed and alarms, visiting hours, pain management, procedures, bathroom and other care routines, personal items, smoking policy, room service/diet and guest tray routines, security routines, and visiting hours. Patient/Family are encouraged to report perceived risks to care and to ask questions if they do not understand what they are told or what they should do. See OBIX for further documentation.
--- NOTE | 2022-11-23 07:58 | PM.IMHP ---
H&P: HPI History of Present Illness Date/Time: 11/23/22 07:58 Chief Complaint: preEclampsia Narrative: Sunita is a 22yo at 35.0 with known PreEclampsia who presented last night with a BP of 160/90 at home and HORNER. Overnight the HORNER improved. Denies visual changes or RUQ pain. Good FM. Received steroids a prior admission. Labs are stable. Bps here have been 140s/90s. Review of Systems Review of Systems: All systems reviewed & are unremarkable except as noted in HPI and below PMFSH Past Medical History Medical History No acute medical problems Family History Family History Other No active medical problems Social History Social History Smoking status: Current every day smoker Tobacco type: e-cigarettes/vaping Meds Home Medications and Allergies Home Medications Medication Instructions Recorded Confirmed Type mv-mn no.97-folic 180 mcg-dha 25 1 tablet PO DAILY 11/16/22 11/22/22 History mg-herb no.293 25 mg chewable tablet (Alive Daily Support ) acetaminophen 500 mg tablet 1,000 mg PO Q6H PRN Mild Pain 11/18/22 11/22/22 Rx (1-3) Or Fever Allergies Allergy/AdvReac Type Severity Reaction Status Date / Time No Known Allergies Allergy Verified 11/22/22 22:53 Vital Signs Vital Signs - 24 hr 11/22/22 22:45 11/22/22 22:42 11/22/22 23:00 Temperature 98.5 F Pulse Rate 86 84 Respiratory Rate 16 Blood Pressure 148/83 H 145/78 H Oxygen Delivery 11/22/22 23:15 11/22/22 23:30 11/22/22 23:45 Temperature Pulse Rate 79 88 80 Respiratory Rate Blood Pressure 148/76 H 143/85 H 153/84 H Oxygen Delivery 11/23/22 00:00 11/23/22 01:00 11/23/22 06:11 Temperature Pulse Rate 79 88 88 Respiratory Rate Blood Pressure 144/90 H 133/76 144/78 H Oxygen Delivery 11/23/22 06:55 11/23/22 07:00 11/23/22 07:15 Temperature Pulse Rate 85 95 87 Respiratory Rate Blood Pressure 146/87 H 143/88 H 142/89 H Oxygen Delivery 11/23/22 07:30 11/23/22 07:45 11/23/22 06:45 Temperature Pulse Rate 87 99 Respiratory Rate Blood Pressure 149/85 H 146/93 H Oxygen Delivery Room Air 11/22/22 23:04 Temperature Pulse Rate 84 Respiratory Rate Blood Pressure 145/78 H Oxygen Delivery Exam Const: General: no acute distress Resp: Effort & Inspection: normal respiratory effort Auscultation: clear to auscultation bilaterally Cardio: Rate: regular rate Rhythm: regular rhythm GI: GI Palp: Yes Soft to palpation Extrem: General: normal to inspection H&P: Results Labs Labs: Short CBC 11/22/22 11/23/22 Range/Units 22:49 06:11 WBC 9.6 10.2 H (4.5-10.0) K/mm3 Hgb 10.9 L 10.8 L (12.0-15.0) g/dL Hct 31.2 L 31.4 L (37.0-47.0) % Plt Count 187 172 (150-375) k/mm3 BMP 11/22/22 11/23/22 22:49 06:10 Sodium 133 L 134 L Potassium 3.0 L 3.5 Chloride 103 106 Carbon Dioxide 24 22 BUN 5 L 4 L Creatinine 0.40 L 0.40 L Glucose 133 H 85 Calcium 8.7 8.4 Liver Function 11/22/22 11/23/22 Range/Units 22:49 06:10 Total Bilirubin 0.4 0.5 (0.2-1.3) mg/dL AST 16 20 (14-36) U/L ALT 10 9 (6-35) U/L Alkaline Phosphatase 95 88 (38-126) U/L Albumin 3.4 L 3.3 L (3.5-5.1) g/dL Urine 11/22/22 Range/Units 22:49 Urine Color Yellow (Yellow) Urine Appearance Clear (Clear) Urine pH 7.0 (5.0-9.0) Ur Specific [place] 1.015 (1.001-1.035) Urine Protein Negative (Negative) mg/dL Urine Glucose (UA) Negative (Negative) mg/dL Assessment and Plan Assessment and plan (1) Mild preeclampsia: Code(s): O14.00 - Mild to moderate pre-eclampsia, unspecified trimester Status: Acute Plan FHT category 1 on NST this am HORNER improved, tylenol prn, neck and shoulder massage pr
--- NOTE | 2022-11-25 07:30 | PM.OBTRLD ---
OB - Triage/Final Diagnosis Visit Information Comments/Additional reasons for admission: I have assessed the risk for this patient, Sunita uGy, and determined that she would benefit from observation care. Evaluation Laboratory results: Laboratory Tests 11/22/22 11/22/22 11/22/22 22:49 22:49 22:49 WBC 9.6 RBC 3.30 L Hgb 10.9 L Hct 31.2 L MCV 94.5 MCH 33.0 MCHC 34.9 RDW 13.3 Plt Count 187 MPV 11.1 H Immature Gran % (Auto) 0.5 Neut % (Auto) 58.9 Lymph % (Auto) 32.5 [place] % (Auto) 7.3 Eos % (Auto) 0.6 Baso % (Auto) 0.2 Lymph # (Auto) 3.10 [place] # (Auto) 0.7 H Eos # (Auto) 0.1 Baso # (Auto) 0.0 Abs Immat Gran (auto) 0.05 H Absolute Neuts (auto) 5.6 Absolute Nucleated RBC 0.0 Nucleated RBC % 0.0 Sodium Potassium Chloride Carbon Dioxide Anion Gap BUN Creatinine Estim Creat Clear Calc Estimated GFR Glucose Uric Acid Calcium Total Bilirubin AST ALT Alkaline Phosphatase Total Protein Albumin Urine Color Yellow Urine Appearance Clear Urine pH 7.0 Ur Specific [place] 1.015 Urine Protein Negative Urine Glucose (UA) Negative Urine Ketones Negative Ur Blood (Man) Negative Urine Nitrate Negative Urine Bilirubin Negative Urine Urobilinogen 0.2 Ur Leukocyte Esterase Negative Urine RBC 0-2 Urine WBC 0-3 Ur Squamous Epith Cells Many H Urine Bacteria 2+ H U Random Total Protein 32 Urine Creatinine 31.6 Protein/Creat Ratio 2 1.01 H 11/22/22 11/23/22 11/23/22 22:49 06:10 06:10 WBC RBC Hgb Hct MCV MCH MCHC RDW Plt Count MPV Immature Gran % (Auto) Neut % (Auto) Lymph % (Auto) [place] % (Auto) Eos % (Auto) Baso % (Auto) Lymph # (Auto) [place] # (Auto) Eos # (Auto) Baso # (Auto) Abs Immat Gran (auto) Absolute Neuts (auto) Absolute Nucleated RBC Nucleated RBC % Sodium 133 L 134 L Potassium 3.0 L 3.5 Chloride 103 106 Carbon Dioxide 24 22 Anion Gap 6 L 6 L BUN 5 L 4 L Creatinine 0.40 L 0.40 L Estim Creat Clear Calc Not Reportable Not Reportable Estimated GFR > 60 > 60 Glucose 133 H 85 Uric Acid 3.3 3.4 Calcium 8.7 8.4 Total Bilirubin 0.4 0.5 AST 16 20 ALT 10 9 Alkaline Phosphatase 95 88 Total Protein 6.0 L 6.0 L Albumin 3.4 L 3.3 L Urine Color Urine Appearance Urine pH Ur Specific [place] Urine Protein Urine Glucose (UA) Urine Ketones Ur Blood (Man) Urine Nitrate Urine Bilirubin Urine Urobilinogen Ur Leukocyte Esterase Urine RBC Urine WBC Ur Squamous Epith Cells Urine Bacteria U Random Total Protein 21 Urine Creatinine 24.3 Protein/Creat Ratio 2 0.86 H 11/23/22 06:11 WBC 10.2 H RBC 3.32 L Hgb 10.8 L Hct 31.4 L MCV 94.6 MCH 32.5 MCHC 34.4 RDW 13.2 Plt Count 172 MPV 10.8 H Immature Gran % (Auto) 0.6 H Neut % (Auto) 55.8 Lymph % (Auto) 34.7 [place] % (Auto) 8.0 Eos % (Auto) 0.7 Baso % (Auto) 0.2 Lymph # (Auto) 3.53 H [place] # (Auto) 0.8 H Eos # (Auto) 0.1 Baso # (Auto) 0.0 Abs Immat Gran (auto) 0.06 H Absolute Neuts (auto) 5.7 Absolute Nucleated RBC 0.0 Nucleated RBC % 0.0 Sodium Potassium Chloride Carbon Dioxide Anion Gap BUN Creatinine Estim Creat Clear Calc Estimated GFR Glucose Uric Acid Calcium Total Bilirubin AST ALT Alkaline Phosphatase Total Protein Albumin Urine Color Urine Appearance Urine pH Ur Specific [place] Urine Protein Urine Glucose (UA) Urine Ketones Ur Blood (Man) Urine Nitrate Urine Bilirubin Urine Urobilinogen Ur Leukocyte Esterase Urine RBC Urine WBC Ur Squamous Epith Cells Urine Bacteria U Random Total Protein Urine Creatinine Protein/Creat Ratio 2 Final Diagnosis (1) Mild preeclampsia: Code(s):
== END 2022-11-23 08:55 | disposition home or self-care (01) ==
LOC: ANHOBOP 11-23 02:19 → ANHOBPP 11-23 08:19
PROVIDERS: Advanced Practice Midwife; Admitting Provider Obstetrics & Gynecology; Visit Provider Obstetrics & Gynecology
DX: O14.03 Mild to moderate pre-eclampsia, third trimester (principal); O99.333 Smoking (tobacco) complicating pregnancy, third trimester; F17.290 Nicotine dependence, other tobacco product, uncomplicated; Z79.1 Long term (current) use of non-steroidal anti-inflammatories (NSAID); Z79.899 Other long term (current) drug therapy; Z3A.35 35 weeks gestation of pregnancy
CPT/HCPCS: 36415; 80053; 81003; 82570; 84156; 84550; 85025; 87086; A9270; G0378; G0379

== ENCOUNTER 2022-12-07 15:45 | Inpatient (IN) | payer BC, SELFPAY ==
[2022-12-07] VITALS (27 sets, daily range): BP systolic 142–163; BP diastolic 84–102; PULSE 74–107; RESP 16; TEMP 36.3–37.4; O2SAT 95–100; BMI 31.8
--- NOTE | 2022-12-07 16:10 | LDADM ---
This patient, Sunita Guy, was admitted to Labor/Delivery/Recovery 108 on 12/07/22 at 15:45. Plans for labor, pain management and were discussed with patient. Patient/family oriented to hospital policies and general routines including ID bracelet, bed and alarms, visiting hours, pain management, procedures, bathroom and other care routines, personal items, smoking policy, room service/diet and guest tray routines, infant security routines, and visiting hours. Patient/Family are encouraged to report perceived risks to care and to ask questions if they do not understand what they are told or what they should do. See OBIX for further documentation.
[2022-12-07 16:18] LABS: Basophils Percent Auto 0.3 % (0.2-1.2); Eosinophils Absolute Auto 0.1 K/mm3 (0-0.3); Eosinophils Percent Auto 1.1 % (0-4.4); Hematocrit 32.5 % (37.0-47.0); Hemoglobin 11.4 g/dL (12.0-15.0); Immature Granulocyte Absolute 0.03 K/mm3 (0.00-0.031); Immature Granulocyte Percent A 0.4 % (0-0.5); Lymphocytes Absolute Auto 2.21 K/mm3 (0.9-3.2); Lymphocytes Percent Auto 28.1 % (18.3-44.2); Mean Corpuscular HGB Conc 35.1 g/dl (32-36); Mean Corpuscular Hemoglobin 32.8 pg (26-34); Mean Corpuscular Volume 93.4 fl (80-100); Mean Platelet Volume 11.1 fl (7.4-10.4); Monocytes Absolute Auto 0.7 K/mm3 (0.1-0.6); Monocytes Percent Auto 9.4 % (2.6-8.5); Neutrophils Absolute Auto 4.8 K/mm3 (1.3-6.7); Neutrophils Percent Auto 60.7 % (45.5-73.1); Platelet Count Result 176 k/mm3 (150-375); Red Blood Count 3.48 M/mm3 (4.2-5.4); Red Cell Distribution Width 13.3 % (11.5-14.5); White Blood Count 7.9 K/mm3 (4.5-10.0)
[2022-12-07] MEDS: DINOPROSTONE 10 MG VAG INSERT VAGINAL (16:21)
[2022-12-07 16:44] LABS: Alanine Aminotransferase 10 U/L (6-35); Albumin Level 3.5 g/dL (3.5-5.1); Alkaline Phosphatase 132 U/L (38-126); Anion Gap 7 mmol/L (8-16); Aspartate Amino Transferase 20 U/L (14-36); Bilirubin,Total 0.5 mg/dL (0.2-1.3); Blood Urea Nitrogen 5 mg/dL (7-17); Calcium 8.2 mg/dL (8.4-10.2); Carbon Dioxide 23 mmol/L (22-30); Chloride 106 mmol/L (98-107); Estimated CRCL calculation 186 ml/min; Estimated Glomerular Filt Rate > 60; Glucose 100 mg/dL (65-110); Potassium 3.5 mmol/L (3.4-5.0); Sodium 136 mmol/L (137-145); Uric Acid 4.3 mg/dL (2.5-7.5)
[2022-12-07] MEDS: LABETALOL HCL INJ 100 MG/20 ML VIAL 20 MG IV PUSH (23:02)
[2022-12-08] VITALS (79 sets, daily range): BP systolic 112–167; BP diastolic 68–104; PULSE 74–100; RESP 16–18; TEMP 36.3–36.8; O2SAT 98–100
[2022-12-08] MEDS: LACTATED RINGERS 1,000 ML 125 ML IV CONT (05:12)
[2022-12-08] MEDS: OXYTOCIN 30 UNITS/NS 500 ML 30 UNITS/500 ML BAG 6 UNITS IV CONT (05:15)
--- NOTE | 2022-12-08 05:45 | PM.OBPNLAB ---
Pain Control Date/time seen: 12/08/22 5860 Comments: I called in for update. Was told she just had 2 severe range pressures. I did ask if any others throughout the night and was told one pressure in severe range around 0400. Nursing staff states she is very uncomfortable and feels the bp may be related to that. I asked about cervical change and no change with recent exam. Pitocin at 32. Asked about IUPC and staff considered overnight but was not comfortable placing. I will call MD to discuss plan of care.
--- NOTE | 2022-12-08 07:40 | WPDOBADMIT ---
Obstetrics - Admit Note Admission Note: 22 y/o G1 admitted for induction d/t pre-eclampsia.Cervidil overnight. Cervix soft. Discussed repeat cervidil vs pitocin vs cytotec with patient and she is agreeable to proceed with cytotec. 2 severe range blood pressures last night. Discussed with Dr Brasher and labetalol protocol order was given and order given to start mag when active. Per nursing staff they have been good since. Updated Dr Brasher at 0755am and agrees with plan. record reviewed. No pertinent additions to the history and/or any subsequent changes in the physical findings that are not consistent with the expected course of the were found. Additions to the history and/or subsequent changes in the physical findings follow. None.
--- NOTE | 2022-12-08 07:55 | PM.IMHP ---
H&P: HPI History of Present Illness Date/Time: 12/08/22 07:55 Chief Complaint: Induction of labor for pre eclampsia. Review of Systems Review of Systems: All systems reviewed & are unremarkable except as noted in HPI and below Constitutional: Constitutional: Reports as per HPI and Reports no additional constitutional complaints Eyes: Eyes: Reports as per HPI ENT: Reports system reviewed and no additional complaints, except as documented Cardiovascular: Cardiovascular: Reports as per HPI Respiratory: Respiratory: Reports as per HPI Gastrointestinal: Gastrointestinal: Reports as per HPI Genitourinary: Genitourinary: Reports no additional female genitourinary complaints Musculoskeletal: Musculoskeletal: Reports no additional musculoskeletal complaints Integumentary/Breasts: Skin/Breast: Reports system reviewed and no additional complaints, except as docu Neurologic: Reports system reviewed and no additional complaints, except as documented Psychiatric: Psychiatric: Reports no additional psychiatric complaints Endocrine: Endocrine: Reports no additional endocrine complaints Hematologic/Lymphatic: Hematologic/Lymphatic: Reports no additional hematologic/lymphatic complaints Allergic/Immunologic: Allergic/Immunologic: Reports no additional allergic/immunologic complaints [facility] Past Medical History Medical History No acute medical problems Family History Family History (Updated 12/01/22 @ 15:35 by Dori Amin RN) Grandparent Diabetes mellitus Other No active medical problems Social History Social History Smoking status: Current some day smoker Tobacco type: cigarettes and e-cigarettes/vaping Substance use: never Lack of Transportation: No Lack of Food: Never True Current Housing: I Have Housing Concerned About Future Housing: No Difficulty Paying Gas/Electric Bills: No Difficulty Paying for Meds: No Currently Unemployed: YES Education: High School Diploma/GED Difficulty w/ Childcare or Family Care: No Spiritual care concerns: No Meds Home Medications and Allergies Home Medications Medication Instructions Recorded Confirmed Type mv-mn no.97-folic 180 mcg-dha 25 1 tablet PO DAILY 11/16/22 12/01/22 History mg-herb no.293 25 mg chewable tablet (Alive Daily Support ) acetaminophen 500 mg tablet 1,000 mg PO Q6H PRN Mild Pain 11/18/22 12/01/22 Rx (1-3) Or Fever cyclobenzaprine 5 mg tablet 5 mg PO TID PRN Headache 12/01/22 12/01/22 History diphenhydramine HCl 25 mg capsule 25 mg PO HS PRN Headache 12/01/22 12/01/22 History (Benadryl) Allergies Allergy/AdvReac Type Severity Reaction Status Date / Time No Known Allergies Allergy Verified 12/01/22 15:32 Vital Signs Vital Signs - 24 hr 12/07/22 16:05 12/07/22 17:39 12/07/22 17:45 Temperature Pulse Rate 100 104 H Respiratory Rate Blood Pressure 146/89 H 150/96 H Pulse Oximetry Oxygen Delivery Room Air 12/07/22 18:00 12/07/22 18:15 12/07/22 18:30 Temperature 99.4 F Pulse Rate 100 96 107 H Respiratory Rate 16 Blood Pressure 150/85 H 148/87 H 142/86 H Pulse Oximetry Oxygen Delivery 12/07/22 22:29 12/07/22 22:30 12/07/22 22:48 Temperature 97.4 F L Pulse Rate 81 78 Respiratory Rate 16 Blood Pressure 160/102 H 163/95 H Pulse Oximetry Oxygen Delivery 12/07/22 23:00 12/07/22 23:05 12/07/22 23:09 Temperature Pulse Rate 78 96 Respiratory Rate Blood Pressure 155/101 H 152/99 H Pulse Oximetry 95 Oxygen Delivery 12/07/22 23:10 12/07/22 23:14 12/07/22 23:19 Temperature Pulse Rate 87 Respiratory Rate Blood Pressure 157/87 H Pulse Oximetry 98 99 Oxygen Delivery 12/07/22 23:20 12/07/22 23:24 12/07/22 23:29 Temperature Pulse Rate 84 Respiratory Rate Blood Pressure
[2022-12-08 08:28] LABS: Rapid Plasma Reagin Non-Reactive (NonReactive)
[2022-12-08] MEDS: miSOPROStol 25 MCG TABLET BY MOUTH ×3 (09:30→17:54)
[2022-12-08] MEDS: LABETALOL HCL INJ 100 MG/20 ML VIAL 20 MG IV PUSH (21:30)
--- NOTE | 2022-12-08 21:30 | PM.OBPNLAB ---
Pain Control Date/time seen: 12/08/222129 Assessment and Plan Comments: Spoke with Dr Brasher about patient and we have decided to also start magnesium at this time instead of waiting until active. I called and gave order.
[2022-12-08] MEDS: MAGNESIUM SULF 4 GM/WATER100ML 4 GM/100 ML BAG IVPB (22:17)
[2022-12-08] MEDS: MAGNESIUM SULF 20GM/WATER500ML 500 ML 50 MG IV CONT (23:20)
[2022-12-09] VITALS (372 sets, daily range): BP systolic 93–173; BP diastolic 49–124; PULSE 82–164; RESP 16–24; TEMP 36.3–37.4; O2SAT 89–100
--- NOTE | 2022-12-09 00:05 | PM.OBPNLAB ---
Pain Control Date/time seen: 12/09/22 0005 Assessment and Plan Comments: Informed of 2 severe range pressures but staff felt was pain and movement related. Will recheck now and if elevated will call for labetalol order.
[2022-12-09] MEDS: LACTATED RINGERS 1,000 ML 125 ML IV CONT ×3 (00:37→18:00)
--- NOTE | 2022-12-09 00:41 | P.PNAN_ITS ---
Anes - Eval Pre Procedure Procedure: Labor epidural Date/Time: 12/09/22 00:41 Surgeon: Sameera Preop Diagnosis: Abdominal pain with contractions Pre Op Diagnosis: Induction of Labor Patient Data Age: 22 Gender: F Height: 1.63 m Weight: 84 kg Last Vital Signs Temp 97.4 F L 12/08/22 23:20 Pulse 86 12/09/22 00:30 Resp 16 12/08/22 23:20 BP 159/96 H 12/09/22 00:30 Pulse Ox 96 12/09/22 00:38 O2 Del Method Room Air 12/07/22 18:30 Allergies Allergy/AdvReac Type Severity Reaction Status Date / Time No Known Allergies Allergy Verified 12/01/22 15:32 Home Medications Medication Instructions Recorded Confirmed Type mv-mn no.97-folic 180 mcg-dha 25 1 tablet PO DAILY 11/16/22 12/01/22 History mg-herb no.293 25 mg chewable tablet (Alive Daily Support ) acetaminophen 500 mg tablet 1,000 mg PO Q6H PRN Mild Pain 11/18/22 12/01/22 Rx (1-3) Or Fever cyclobenzaprine 5 mg tablet 5 mg PO TID PRN Headache 12/01/22 12/01/22 History diphenhydramine HCl 25 mg capsule 25 mg PO HS PRN Headache 12/01/22 12/01/22 History (Benadryl) Laboratory Tests 12/07/22 16:00 RPR Non-reactive (NonReactive) : gestational age HCG: positive Patient hx anesthesia problems: none Family hx anesthesia problems: none Results Review: All pre-operative results and documents have been reviewed as part of the pre- operative evaluation. [facility] Past Medical History Medical History (Updated 12/09/22 @ 00:42 by Ted Jay CRNA) No acute medical problems Overweight (BMI 25.0-29.9) Preeclampsia and not yet delivered Family History Family History Grandparent Diabetes mellitus Other No active medical problems Social History Social History Smoking status: Current some day smoker Tobacco type: cigarettes and e-cigarettes/vaping Substance use: never Lack of Transportation: No Lack of Food: Never True Current Housing: I Have Housing Concerned About Future Housing: No Difficulty Paying Gas/Electric Bills: No Difficulty Paying for Meds: No Currently Unemployed: YES Education: High School Diploma/GED Difficulty w/ Childcare or Family Care: No Spiritual care concerns: No Exam Day of Procedure 12/09/22 00:41 Patient weight: overweight
[2022-12-09] MEDS: LABETALOL HCL INJ 100 MG/20 ML VIAL 20 MG IV PUSH (06:05)
[2022-12-09] MEDS: ONDANSETRON INJ 4 MG/2 ML VIAL IV PUSH ×2 (06:46→13:10)
--- NOTE | 2022-12-09 06:59 | PM.OBPNLAB ---
Pain Control Date/time seen: 12/08/22 3955 Comments: Toerating well Pelvic Exam Comments: /-3 well applied and soft Status Comments: 140 and reactive Assessment and Plan Comments: Pt doing well. Tolerating contractions. VSS Irregular contractions FHR category 1 Cervix /-3 AROM small amount of clear odorless fluid Proceed with induction Epidural when desired Anticipate
--- NOTE | 2022-12-09 07:03 | PM.OBPNLAB ---
Pain Control Date/time seen: 12/08/222119 Assessment and Plan Comments: Received phone update on 2 severe range blood pressures. Order given for labetalol per protocol.
--- NOTE | 2022-12-09 07:21 | PM.OBPNLAB ---
Pain Control Date/time seen: 12/09/22 0600 Comments: Called hospital and order given for labetalol and that I will be in to evaluate and place IUPC. Again verified no additional elevated blood pressures in addition to the one around 0400 and the 2 around 0530
[2022-12-09] MEDS: MAGNESIUM SULF 20GM/WATER500ML 500 ML 50 MG IV CONT ×2 (09:01→19:14)
[2022-12-09] MEDS: CALCIUM CARBONATE (TUMS) 500 MG (200 MG ELEMENTAL) PO (09:47)
[2022-12-09] MEDS: ACETAMINOPHEN 500 MG TABLET 1000 MG (11:27)
[2022-12-09] MEDS: AMPICILLIN 2 GM/NS 100 ML 2 GM/100 ML BAG 200 GM (11:45)
[2022-12-09] MEDS: AMPICILLIN 1 GM/NS 50 ML 1 GM/50 ML BAG IVPB ×2 (15:27→19:17)
[2022-12-09] MEDS: SODIUM CHLORIDE 0.9% IV 300 ML 600 ML I-UTERINE (15:29)
[2022-12-09] MEDS: OXYTOCIN 30 UNITS/NS 500 ML 30 UNITS/500 ML BAG 6 UNITS IV CONT (16:15)
[2022-12-09] MEDS: diphenhydrAMINE HCl INJ 50 MG/ML VIAL 25 MG IV PUSH (16:29)
[2022-12-09] MEDS: METOCLOPRAMIDE HCL INJ 10 MG/2 ML VIAL IV PUSH (16:30)
--- NOTE | 2022-12-09 18:29 | PM.OBPNLAB ---
Pain Control Date/time seen: 12/09/22 18:29 Comments: SVE 3-4/80/-2 firm, contractions adequate, c/o galvez and as given benadryl and reglan and was able to sleep discussed section as an option and pt declined at this time. Will plan to recheck at 20:30 if no significant change will discuss with Dr. Brasher, pt aware
[2022-12-09] MEDS: LABETALOL HCL 100 MG TABLET 200 MG PO (20:59)
--- NOTE | 2022-12-09 21:41 | PM.IMHP ---
H&P: HPI History of Present Illness Date/Time: 12/09/22 21:41 Chief Complaint: Term gestation Narrative: this patient is a 22-year-old primiparous female who has severe preeclampsia. She was induced. She has made very little and slow progress/cervical change. She is for half to 5 cm at this time but for the past hour she has lost her long-term variability and has only moderate ddmp-ur-mtbg variability. She denies any nausea, vomiting, fever, chills. She denies any chest pain or shortness of breath. We have agreed to perform delivery. She understands there is risk. She understands injuries may occur as result in hospitalization, more surgery, and severe illness. She understands the risk of hemorrhage and infection. Review of Systems Review of Systems: All systems reviewed & are unremarkable except as noted in HPI and below Constitutional: Constitutional: Denies chills, Denies fatigue, Denies fever(s) and Denies weakness Eyes: Eyes: Denies blurry vision, Denies change in vision, Denies loss of peripheral vision, Denies loss of vision, Denies other visual disturbances and Denies eye pain ENT: Denies vertigo, Denies dizziness, Denies hearing loss, Denies mouth pain, Denies nasal obstruction, Denies neck mass and Denies neck pain Cardiovascular: Cardiovascular: Denies chest pain, Denies diaphoresis, Denies syncope, Denies leg edema and Denies dyspnea Respiratory: Respiratory: Denies chest congestion, Denies cough, Denies hemoptysis, Denies dyspnea and Denies wheezing Gastrointestinal: Gastrointestinal: Denies abdominal pain, Denies constipation, Denies diarrhea, Denies nausea and Denies vomiting Genitourinary: Genitourinary: Denies hematuria, Denies change in libido, Denies nocturia, Denies genital lesions, Denies flank pain and Denies urinary urgency Musculoskeletal: Musculoskeletal: Denies abnormal gait, Denies back pain, Denies myalgias, Denies arthralgias, Denies joint swelling, Denies muscle weakness and Denies neck pain Integumentary/Breasts: Skin/Breast: Denies swelling, Denies breast pain, Denies breast mass, Denies dry skin, Denies nipple discharge, Denies unusual bruising and Denies jaundice Neurologic: Denies Neuro-related abnormal movements, Denies Abnormal speech present, Denies abnormal gait, Denies behavioral changes, Denies confusion, Denies vertigo, Denies dizziness, Denies syncope, Denies loss of vision, Denies memory loss, Denies convulsions and Denies weakness Psychiatric: Psychiatric: Denies abnormal sleep pattern, Denies behavioral changes, Denies change in libido, Denies confusion, Denies depression, Denies anhedonia and Denies memory loss Endocrine: Endocrine: Reports no additional endocrine complaints, Denies change in libido and Denies fatigue Hematologic/Lymphatic: Hematologic/Lymphatic: Reports no additional hematologic/lymphatic complaints Allergic/Immunologic: Allergic/Immunologic: Reports no additional allergic/immunologic complaints and Denies wheezing PMFSH Past Medical History Medical History (Updated 12/09/22 @ 21:44 by Jessica Brasher MD) No acute medical problems Overweight (BMI 25.0-29.9) Preeclampsia and not yet delivered Family History Family History Grandparent Diabetes mellitus Other No active medical problems Social History Social History Smoking status: Current some day smoker Tobacco type: cigarettes and e-cigarettes/vaping Substance use: never Lack of Transportation: No Lack of Food: Never True Current Housing: I Have Housing Concerned About Future Housing: No Difficulty Paying Gas/Electric Bills: No Difficulty Paying for Meds: No Currently Unemployed: YES Education: High School Diploma/GED Difficulty w/ Childcare or Family Care: No Spiritual care concerns: No Meds Home Medications and Allergies Home Medications
--- NOTE | 2022-12-09 22:30 | W.PM.PROC2 ---
Procedure Note - Detailed Date of Procedure 12/09/22 Pre-op Diagnosis Induction of Labor Post-op Diagnosis Same Procedure Performed Low-transverse section Surgeon Jessica Brasher MD Anesthesia Spinal Indications Nonreassuring heart tones Findings Normal gestational maternal anatomy, average size infant, normal Apgars.Very poor tone after delivery of the baby. Pitocin, Methergine, aside she resulted in tone and cessation of bleeding. Description of Procedure The patient was taken the operating room. She was prepped and draped in dorsal supine position with a leftward tilt. This was done after spinal anesthetic was applied. A low-transverse skin incision was made and carried down till of the fascia with the knife. The fascial incision was made with the knife. The fascial incision was extended laterally with Freeman scissors. The fascia was tented upward superiorly and inferiorly the rectus muscles were dissected off bluntly. The rectus muscles were the midline. The preperitoneal fat and peritoneum were dissected open bluntly at the superior aspect of the rectus muscles. The peritoneal incision was extended superior and inferior with good position of bladder. The uterine incision was made with a scalpel down to the level of the amniotic cavity. The amniotic cavity was entered bluntly. The was delivered. The cord was clamped and cut and the infant was handed off to waiting pediatric staff. Cord bloods were obtained. The placenta was removed manually. The uterus was exteriorized. The uterus was cleared of all clots, debris and membranes. The uterus was closed in 0 Vicryl running lock fashion. An imbricating over a was placed along the incision line as well. The uterus was returned to the abdomen. The gutters were cleared of all clots and debris. The fascia was closed with 0 Vicryl running fashion. The subcutaneous tissue was irrigated pinpoint bleeders were cauterized. The skin was closed with subcuticular absorbable mark. The skin incision line was covered with glue. The patient tolerated the procedure well. She has taken recovery room in stable condition. Sponge lap and needle counts were correct x2. Complications No immediate complications Condition Stable Disposition PACU
--- NOTE | 2022-12-09 23:05 | SUR.PHASEI ---
Dr. Brasher called for clarification of verbal order received at 2230 for Pitocin infusion post-op. Orders received to do what they normally do .
--- NOTE | 2022-12-09 23:07 | PC.NURSE ---
Dr. Brasher called again by this RN to clarify orders for next bag of IVF with [address] Brasher stated to just give what they normally give . Instructed Dr. Brasher there were no standard orders for a patient on Magnesium Sulfate drip who hemorrhaged. Dr. Brasher stated to give a little faster . Again noted that normal is 125 ml/hr, he then stated then give at 150 ml/hr. Orders noted for D5 1/2 NSS with 40 units of Pitocin.
[2022-12-10] VITALS (22 sets, daily range): BP systolic 112–147; BP diastolic 58–94; PULSE 83–104; RESP 16–22; TEMP 36.5–37.7; O2SAT 94–98
--- NOTE | 2022-12-10 00:53 | OBPPTRN ---
Patient transferred to post room #281 via stretcher. Support person present. Oriented to unit, room, information board, rooming in, admission packet and security measures. Patient verbalizes understanding. Pt transferred to bed using the 3B's on the maxi air, call light within reach.
[2022-12-10] MEDS: KETOROLAC 30 MG/ML VIAL (*BKC) IV PUSH (02:23)
--- NOTE | 2022-12-10 05:06 | PC.NURSE ---
Breast pump provided due to using a nipple shield. Instructions given on cleaning, care, usage, that there should be no pain, pumping schedule for milk production, collection, and storage of human milk. Parents are encouraged to record pumping schedule on the [feeding sheet/pumping log]. Patient was assessed for correct placement, flange size, to pump for comfort and nipple stretching/stimulation for adequate milk production every 3 hours (8 times in 24 hours) 1-2 times at night. Mother voiced understanding of the education shared along with mom and baby guide for additional resource information.
[2022-12-10] MEDS: MAGNESIUM SULF 20GM/WATER500ML 500 ML 50 MG ×2 (05:22→13:39)
[2022-12-10 05:24] LABS: Basophils Percent Auto 0.2 % (0.2-1.2); Eosinophils Absolute Auto 0.1 K/mm3 (0-0.3); Immature Granulocyte Absolute 0.04 K/mm3 (0.00-0.031); Immature Granulocyte Percent A 0.3 % (0-0.5); Lymphocytes Absolute Auto 1.79 K/mm3 (0.9-3.2); Lymphocytes Percent Auto 13.9 % (18.3-44.2); Mean Corpuscular HGB Conc 33.3 g/dl (32-36); Mean Corpuscular Hemoglobin 32.3 pg (26-34); Mean Corpuscular Volume 96.8 fl (80-100); Monocytes Absolute Auto 0.6 K/mm3 (0.1-0.6); Monocytes Percent Auto 4.9 % (2.6-8.5); Neutrophils Absolute Auto 10.2 K/mm3 (1.3-6.7); Neutrophils Percent Auto 79.7 % (45.5-73.1); Platelet Count Result 136 k/mm3 (150-375); Red Blood Count 2.79 M/mm3 (4.2-5.4); Red Cell Distribution Width 13.3 % (11.5-14.5); White Blood Count 12.9 K/mm3 (4.5-10.0)
[2022-12-10] MEDS: HYDROcodone/acetaminophen (*CRX) 5-325 MG TABLET 1 TAB PO ×4 (05:24→22:43)
[2022-12-10] MEDS: MULTIVIT/MIN/PREN/FOL AC/IRON TABLET 1 TAB PO (07:55)
[2022-12-10] MEDS: DOCUSATE SODIUM 100 MG CAPSULE PO ×2 (07:56→17:18)
[2022-12-10] MEDS: POLYSACCHARIDE IRON COMPLEX 150 MG CAPSULE PO ×2 (07:56→17:19)
[2022-12-10] MEDS: DEXTROSE 5%/0.45% SOD CHL 1,000 ML 125 ML IV CONT (07:56)
--- NOTE | 2022-12-10 08:05 | P.PNOB_ITS ---
OB - PN: Subj Subjective Date/time seen: 12/10/22 08:05 Patient comments: no complaints, pain well controlled, tolerating diet and flatus present [facility] baby status: doing well OB - PN: Obj Data Labs 12/10/22 04:19 12/07/22 16:23 Labs: Laboratory Results - last 24 hr 12/10/22 04:19 WBC 12.9 H RBC 2.79 L Hgb 9.0 L Hct 27.0 L MCV 96.8 MCH 32.3 MCHC 33.3 RDW 13.3 Plt Count 136 L MPV 12.0 H Immature Gran % (Auto) 0.3 Neut % (Auto) 79.7 H Lymph % (Auto) 13.9 L [place] % (Auto) 4.9 Eos % (Auto) 1.0 Baso % (Auto) 0.2 Lymph # (Auto) 1.79 [place] # (Auto) 0.6 Eos # (Auto) 0.1 Baso # (Auto) 0.0 Abs Immat Gran (auto) 0.04 H Absolute Neuts (auto) 10.2 H Absolute Nucleated RBC 0.0 Nucleated RBC % 0.0 OB - PN A/P Plan day: 1 Plan: routine care Comments: Continue magnesium x 24 hours post delivery Time Spent With Patient Time: Total time spent is greater than 50% in coordination of care (as documented) at patient's floor/unit and/or counseling patient: Time with patient: less than 15 minutes Review of Systems Review of Systems: All systems reviewed & are unremarkable except as noted in HPI and below Exam Narrative: Fundus firm. Vaginal flow controlled. Incision dry and intact. Negative homans. No redness, warmth, or pain of lower ext. Const: General: comfortable Chest: Breast/axilla inspection: normal inspection of the breasts Resp: Effort & Inspection: normal respiratory effort Auscultation: clear to auscultation bilaterally Cardio: Rate: regular rate GI: GI Palp: Yes Soft to palpation Psych: Appearance: grossly normal Affect: normal affect Attitude: event coordinator perative Thought content: Yes Normal thought content present Judgement: Good judgement present (Psych)
--- NOTE | 2022-12-10 10:29 | WPDANLDPN2 ---
Anes-Prog Note L&D Date/Time: 12/10/22 10:29 Neuro status: Neuro function grossly intact. Vital Signs: Last Vital Signs Temp 36.8 C 12/10/22 07:50 Pulse 88 12/10/22 07:50 Resp 16 12/10/22 07:50 BP 112/58 L 12/10/22 07:50 Pulse Ox 95 12/10/22 07:50 O2 Del Method Room Air 12/10/22 04:30 O2 Flow Rate 10 12/09/22 23:00 Pain score (VAS): 2 I/O: Intake & Output 12/09/22 12/10/22 12/10/22 23:59 07:59 15:59 Intake Total 0 1075 Output Total 625 Balance 2050 450 Patient feedback: Patient satisfied with anesthetic care.
--- NOTE | 2022-12-10 10:29 | WPDANLDNPN2 ---
Anes-Prog Note L&D-Neuraxial Date/Time: 12/10/22 10:29 Patient feedback: Patient satisfied with post-operative pain management.
--- NOTE | 2022-12-10 13:36 | PC.NURSE ---
[id number] Introductions were made, then consulted with patient to assess needs related to after requested. Mother led the conversation with her?plans to feed?her and the?experience so far. Resources provided for inpatient and outpatient services with the feeding sheet, mom/baby guide, business card and name written on the white board. Mother works well with her with encouragement and education. Encouraged understanding of the benefits of skin to skin (demonstrating unwrapping and placing upright on her chest), stimulating with massage touch, changing positions to encourage wakefulness, hand expression, how to watch for early feeding cues, responsive feeding, feeding on demand (aiming for 8-12 times in 24 hours, about every 2-3 hours), milk production, building/maintaining a milk supply, duration of feeding, signs of adequate intake/output and how to record on the feeding sheet. Reviewed positioning and ear, shoulder, hip alignment, supporting the breast to facilitate a deep latch, asymmetrical latch (off-center), leading with the chin with a big, open, wide gape and body close to mother. Infant latched optimally to the right breast in football/cross cradle position for a few sucks, then stops. Encouragement given as we discussed the behaviors of late . Infant was able to maintain latch without discomfort to mother for a few sucks multiple times. Nipple care reviewed with optimal latch and good positioning. Reviewed good handwashing when or touching the breast/nipples to prevent infection. Resources used to facilitate learning were used with the visual handouts, tool, mom and baby guide. Mother voiced understanding of skin to skin, stimulating with massage touch, responsive feedings, hand expressed colostrum, talking to infant to encourage if it has been 2 -2.5 hours since the start of the last , to call if infant does not latch, or if there is discomfort with . Resources provided for inpatient/outpatient with business card, feeding sheet and the mom/baby guide. Parents voiced understanding of information, demonstrated learning and will call if there is a request for assistance. Reported to the primary RN.
[2022-12-10] MEDS: IBUPROFEN 600 MG TABLET PO ×2 (13:38→19:54)
[2022-12-10] MEDS: SIMETHICONE 80 MG TAB.CHEW PO ×4 (13:38→22:43)
--- NOTE | 2022-12-10 16:27 | PC.NURSE ---
[id number] Mother requested assistance with getting her infant to latch. is sleepy and reluctant so we repositioned mother for comfort. Infant was stimulated with a diaper change of a large meconium and wet diaper, then placed skin to skin with mother and latched to the left breast for less than 5 minutes. Infant was repositioned and latched again for another 5 minutes, then placed skin to skin on mother. Once feeding cues were visualized was positioned to the right breast using football hold. Mother works well with her with encouragement. latched optimally to the right breast with good suck/swallow ratios and mother denies pain. Mother voiced understanding of skin to skin, stimulating with massage touch, responsive feedings, hand expressed colostrum, talking to to encourage if it has been 2 -2.5 hours since the start of the last , to call if does not latch, or if there is discomfort with . Reviewed stimulating breast and hormones to make milk either with effectively or pumping 8-12 times in 24 hours with 1-2 times at night. Resources provided for inpatient/outpatient with business card, feeding sheet and the mom/baby guide. Parents voiced understanding of information, demonstrated learning and will call if there is a request for assistance. Reported to the primary RN.
[2022-12-11] MEDS: IBUPROFEN 600 MG TABLET PO ×2 (03:06→15:17)
[2022-12-11] MEDS: HYDROcodone/acetaminophen (*CRX) 5-325 MG TABLET 1 TAB PO ×3 (03:07→15:17)
[2022-12-11 03:10] VITALS: BP 124/82
--- NOTE | 2022-12-11 07:36 | PM.OBPNVD ---
OB - PN: Subj Subjective Date/time seen: 12/11/22 07:36?no complaints, pain well controlled, tolerating diet and flatus present baby status: doing well OB - PN: Obj Data Labs 12/10/22 04:19 12/07/22 16:23 OB - PN A/P Plan day: 2 Plan: routine care Time Spent With Patient Time: Total time spent is greater than 50% in coordination of care (as documented) at patient's floor/unit and/or counseling patient: Review of Systems Review of Systems: All systems reviewed & are unremarkable except as noted in HPI and below Exam Narrative: Incision CDI Const: General: cooperative and healthy appearing
[2022-12-11] MEDS: POLYSACCHARIDE IRON COMPLEX 150 MG CAPSULE PO ×2 (08:26→15:17)
[2022-12-11] MEDS: MULTIVIT/MIN/PREN/FOL AC/IRON TABLET 1 TAB PO (08:27)
[2022-12-11] MEDS: DOCUSATE SODIUM 100 MG CAPSULE PO ×2 (08:27→15:17)
[2022-12-11 09:00] VITALS: BP 131/75; PULSE 73; RESP 18; TEMP 36.6; O2SAT 98
--- NOTE | 2022-12-11 10:50 | PC.NURSE ---
[id number] Mother led the conversation with her experience and plan to feed her so far and her ability to independently latch optimally without discomfort. Reminded parents to use good handwashing technique to prevent infection. Mother is feeding appropriately for growth of and understands stimulating to eat if needed. Infant has had appropriate feedings in the last 24 hours meets the outcomes for weight, output and jaundice at this time. Mother states she is confident to continue effectively breastfeed her infant at home, when to call for assistance and denies any additional assistance or education at this time. Reinforced understanding of milk production, transition of milk, signs of adequate intake, transition of stool, prevention/relief of engorgement, responsive watching for feeding cues, the different methods of stimulating infant to breastfeed 2-3 hours after the start of the last feeding, community resources and when to call a provider using the resource of the mom and baby guide. Mother voiced understanding of the education shared.
[2022-12-11 12:04] VITALS: BP 136/68; PULSE 86; RESP 16; TEMP 36.9; O2SAT 98
[2022-12-11] MEDS: SIMETHICONE 80 MG TAB.CHEW PO (14:04)
[2022-12-11 16:15] VITALS: BP 152/62; PULSE 75; RESP 16; TEMP 36.8; O2SAT 99
[2022-12-11 20:00] VITALS: BP 145/75; PULSE 88; RESP 16; TEMP 36.7; O2SAT 99
[2022-12-12 00:05] VITALS: BP 145/89
[2022-12-12] MEDS: IBUPROFEN 600 MG TABLET PO ×4 (00:05→22:25)
[2022-12-12] MEDS: HYDROcodone/acetaminophen (*CRX) 5-325 MG TABLET 1 TAB PO ×4 (00:05→22:24)
[2022-12-12] MEDS: SIMETHICONE 80 MG TAB.CHEW PO ×5 (00:05→22:25)
[2022-12-12 04:00] VITALS: BP 145/78
--- NOTE | 2022-12-12 08:53 | PM.OBPNVD ---
OB - PN: Subj Subjective Date/time seen: 12/12/22 08:53 Patient comments: no complaints and pain well controlled baby status: doing well Narrative: BPs last 24 hours 131-152/62-89. Denies PreE sx. OB - PN: Obj Data Labs 12/10/22 04:19 12/07/22 16:23 OB - PN A/P Plan day: 3 Plan: routine care and discharge home Comments: PreE precautions given. Bps mildly elevated, will have BP check at hospital in 1-2 days and at office a few days after that Time Spent With Patient Time: Total time spent is greater than 50% in coordination of care (as documented) at patient's floor/unit and/or counseling patient: Exam Narrative: NAD abdomen soft, appropriately tender, incision CDI Extremities nontender with 1+ edema
--- NOTE | 2022-12-12 09:08 | PM.OBDSVD ---
DS: Admitting Diagnosis Discharge Date 12/12/22 Admitting Diagnosis PreEclampsia at 37w DS: Discharge Diagnosis Discharge Diagnosis (1) delivery delivered: Code(s): O82 - Encounter for delivery without indication Status: Acute (2) Preeclampsia, severe: Code(s): O14.10 - Severe pre-eclampsia, unspecified trimester Status: Acute (3) Non-reassuring heart tones complicating , antepartum: Code(s): O36.8390 - Maternal care for abnormalities of the heart rate or rhythm, unspecified trimester, not applicable or unspecified Status: Acute OB - DS: Summary Hospital Course Hospital Course: Sunita was admitted for IOL for mild PreEclampsia at 37w. She received cervidil. She had severe range BPs, making her severe Preeclamptic and received magnesium for seizure prophylaxis and antihypertensives. She had a prolonged induction with cervical ripening and pitocin, and eventually had a section for intolerance of labor. Her course was uncomplicated with BPs only mildly elevated after delivery. She was discharged home in stable condition on POD 3. OB Procedures : NST, PIH Mgmt and Ultrasound OB Procedures Intrapartum: OB Procedures: : None Peripartum Data Delivery Method: Section Procedures: Procedures Operation Date: 12/09/22 22:30 Actual Procedure Side Surgeon p Section Jessica Brasher MD complications: none Status at Discharge Functional status at discharge: independent ambulation Time Spent with Patient Time attestation: Total time spent providing and/or coordinating discharge services: Exam Narrative: NAD abdomen soft, appropriately tender, incision CDI DS: Data Data Completed and Pending Pending studies at discharge: Pending at discharge 12/09/22 22:08 Surgical [PTH] Routine Discharge Plan Discharge Attending physician on discharge: Madyson Hernández Discharging Clinician: Madyson Hernández Anticipated Discharge Date/Time: 12/12/22 08:58 Patient Disposition: Home, Self-Care Activity: may shower, may drive after 2 weeks and pelvic rest Diet: regular Patient Instructions: Antibiotic Form Stand Alone Forms: General Discharge Information Follow-up/Referrals: Jessica Brasher MD [Physician] - 1 Week Discharge Medications: New oxycodone-acetaminophen [Percocet] 5-325 mg tablet 1 tablet PO Q6H PRN (Reason: pain) Qty: 30 0RF docusate sodium 100 mg Capsule 100 mg PO BID PRN (Reason: Constipation) Qty: 60 0RF polysaccharide iron complex 150 mg iron Capsule 150 mg PO QAM Qty: 60 0RF ibuprofen 600 mg Tablet 600 mg PO Q6H PRN (Reason: Cramping) Qty: 60 0RF Continued Alive Daily Support 180 mcg-25 mg- 25 mg Tablet,Chewable 1 tablet PO DAILY Discontinued diphenhydramine HCl [Benadryl] 25 mg Capsule 25 mg PO HS PRN (Reason: Headache) cyclobenzaprine [Flexeril] 5 mg Tablet 5 mg PO TID PRN (Reason: Headache) acetaminophen 500 mg Tablet 1,000 mg PO Q6H PRN (Reason: Mild Pain (1-3) Or Fever) 0RF Date of admission: 12/07/22 15:45 Primary Care Provider: Tangela Burnett Admitting Provider: Jessica Brasher Attending physician on admission: Jessica Brasher Condition: Stable
[2022-12-12] MEDS: MULTIVIT/MIN/PREN/FOL AC/IRON TABLET 1 TAB PO (09:28)
[2022-12-12] MEDS: POLYSACCHARIDE IRON COMPLEX 150 MG CAPSULE PO ×2 (09:28→16:40)
[2022-12-12] MEDS: DOCUSATE SODIUM 100 MG CAPSULE PO ×2 (09:28→16:40)
[2022-12-12 09:29] VITALS: BP 158/99; PULSE 85; RESP 18; TEMP 37; O2SAT 97
[2022-12-12 12:30] VITALS: BP 136/70; PULSE 85; RESP 18; TEMP 36.8; O2SAT 99
[2022-12-12 16:40] VITALS: BP 137/66; PULSE 81; RESP 18; TEMP 36.5; O2SAT 99
[2022-12-12 18:40] VITALS: BP 144/88; PULSE 80; RESP 18; TEMP 36.8; O2SAT 98
[2022-12-13 00:15] VITALS: BP 136/71; PULSE 84; RESP 18; TEMP 36.7; O2SAT 99
--- NOTE | 2022-12-13 01:28 | PC.NURSE ---
Daylight Savings Time For Daylight Savings Time Beginning in the Spring - Clocks are moved ahead. For [facility], the time of change occurs at 0200 hrs. Time is taken from the sports book server. This entry on the patient's chart recognizes the change in time reflected during documentation. Example: 2 entries for vital signs may be charted for 0200 hrs.
[2022-12-13 04:27] VITALS: BP 144/79; PULSE 90; RESP 18; TEMP 36.5; O2SAT 99
[2022-12-13] MEDS: DOCUSATE SODIUM 100 MG CAPSULE PO (09:33)
[2022-12-13] MEDS: POLYSACCHARIDE IRON COMPLEX 150 MG CAPSULE PO (09:33)
[2022-12-13] MEDS: SIMETHICONE 80 MG TAB.CHEW PO (09:33)
[2022-12-13] MEDS: MULTIVIT/MIN/PREN/FOL AC/IRON TABLET 1 TAB PO (09:33)
[2022-12-13 09:34] VITALS: BP 148/88; PULSE 81; RESP 16; TEMP 36.9; O2SAT 98
[2022-12-13] MEDS: HYDROcodone/acetaminophen (*CRX) 5-325 MG TABLET 1 TAB PO (09:34)
--- NOTE | 2022-12-13 10:18 | PM.OBPNVD ---
OB - PN: Subj Subjective Date/time seen: 12/13/22 10:18 Narrative: POD 4, baby ok to go now. no concerns. BPs remain mildly elevated. OB - PN: Obj Data Labs 12/10/22 04:19 12/07/22 16:23 OB - PN A/P Plan day: 4 Plan: discharge home Comments: BP check this week. Time Spent With Patient Time: Total time spent is greater than 50% in coordination of care (as documented) at patient's floor/unit and/or counseling patient:
--- NOTE | 2022-12-13 15:52 | PC.NURSE ---
1100 Patient viewed the discharge video Mother & Baby Care, The First Two Weeks . Patient was given the opportunity and encouraged to ask questions. Patient verbalized understanding of information shared and has been given the mother/baby guide for home reference.
[2022-12-15 15:50] VITALS: BP 138/96; PULSE 97; RESP 22; TEMP 37.4; O2SAT 100
== END 2022-12-13 12:57 | disposition home or self-care (01) | DRG 788 ==
LOC: ANHLDR 12-09 10:34 → ANHOB2 12-10 00:54
PROVIDERS: Admitting Provider Advanced Practice Midwife; PCP Advanced Practice Midwife; Visit Provider Obstetrics & Gynecology
PROC: 10D00Z1 Extraction of Products of Conception, Low, Open Approach (ICD-10-PCS; CPT 59514; principal; 2022-12-09 22:30)
DX: O36.8330 Maternal care for abnormalities of the fetal heart rate or rhythm, third trimester, not applicable or unspecified (principal); O14.14 Severe pre-eclampsia complicating childbirth; O99.334 Smoking (tobacco) complicating childbirth; F17.210 Nicotine dependence, cigarettes, uncomplicated; Z3A.37 37 weeks gestation of pregnancy; Z37.0 Single live birth
CPT/HCPCS: 36415; 80053; 84550; 85025; 86592; 86850; 86900; 86901; 88307; A9270; J0290; J0330; J1200; J1885; J2210; J2274; J2370; J2405; J2590; J2704; J2765; J2795; J3475; J7030; J7120

== ENCOUNTER 2023-05-01 20:50 | Emergency (ER) | payer BC, SELFPAY ==
--- NOTE | ~2023-05-01 | CT_ITS ---
EXAMINATION: CT abdomen pelvis w con DATE: 05/02/2023 02:11 INDICATION: Lower abdominal pain. Nausea and vomiting. TECHNIQUE: Computed tomography (CT) of the abdomen and pelvis was performed with 100 CC Omnipaque 350 intravenous contrast. Automated exposure control and iterative reconstruction technique were employe d. Exam dose: 389.47 mGy-cm total exam DLP. COMPARISON: None. FINDINGS: The lung bases are clear. Normal heart size. No pericardial or pleural effusion. The liver, gallbladder, bile ducts, pancreas, pancreatic duct and spleen are unremarkable. Normal morphology of the adrenal glands. No renal mass lesion or urinary tract calculus or hydroureteronephrosis is detected. There is moderat e diffuse thickening of the urinary bladder; cystitis is not excluded. The uterus and adnexal areas are unremarkable. Normal caliber of the abdominal aorta. No intraperitoneal or retroperitoneal or pelvic mass lesion or adenopathy or ascites is detected. Normal appendix. No bowel obstruction, bowel wall thickening, pneumatosis or intraperitoneal free air is detected. Small fat-containing umbilical hernia. Included skeletal structures are unremarkable. IMPRESSION: Moderate thickening of the urinary bladder wall which may be due to cystitis or and dist ention; clinical correlation with urinalysis is recommended Reviewed, dictated and finalized at [facility]. Reviewed, dictated and finalized at [facility]. IMPRESSION: Moderate thickening of the urinary bladder wall which may be due t o cystitis or and distention; clinical correlation with urinalysis is recommend ed
[2023-05-01 21:07] VITALS: BP 121/77; PULSE 78; RESP 18; TEMP 36.5; O2SAT 98
[2023-05-01 23:54] VITALS: BP 123/79; PULSE 62; RESP 14; O2SAT 100
[2023-05-02] VITALS (19 sets, daily range): BP systolic 130–156; BP diastolic 79–126; PULSE 57–71; RESP 16–17; O2SAT 96–100
[2023-05-02 00:18] LABS: Basophils Absolute Auto 0.1 K/mm3 (0.0-0.1); Basophils Percent Auto 0.5 % (0.2-1.2); Eosinophils Absolute Auto 0.3 K/mm3 (0-0.3); Eosinophils Percent Auto 2.9 % (0-4.4); Hematocrit 39.2 % (37.0-47.0); Hemoglobin 13.2 g/dL (12.0-15.0); Immature Granulocyte Absolute 0.02 K/mm3 (0.00-0.031); Immature Granulocyte Percent A 0.2 % (0-0.5); Lymphocytes Absolute Auto 5.73 K/mm3 (0.9-3.2); Lymphocytes Percent Auto 54.7 % (18.3-44.2); Mean Corpuscular HGB Conc 33.7 g/dl (32-36); Mean Corpuscular Hemoglobin 31.2 pg (26-34); Mean Corpuscular Volume 92.7 fl (80-100); Mean Platelet Volume 10.7 fl (7.4-10.4); Monocytes Absolute Auto 0.7 K/mm3 (0.1-0.6); Monocytes Percent Auto 6.3 % (2.6-8.5); Neutrophils Absolute Auto 3.7 K/mm3 (1.3-6.7); Neutrophils Percent Auto 35.4 % (45.5-73.1); Platelet Count Result 240 k/mm3 (150-375); Red Blood Count 4.23 M/mm3 (4.2-5.4); White Blood Count 10.5 K/mm3 (4.5-10.0)
[2023-05-02 00:34] LABS: Alanine Aminotransferase 11 U/L (6-35); Albumin Level 4.8 g/dL (3.5-5.1); Alkaline Phosphatase 63 U/L (38-126); Anion Gap 11 mmol/L (8-16); Aspartate Amino Transferase 23 U/L (14-36); Bilirubin,Total 0.3 mg/dL (0.2-1.3); Blood Urea Nitrogen 15 mg/dL (7-17); Calcium 9.3 mg/dL (8.4-10.2); Carbon Dioxide 26 mmol/L (22-30); Chloride 101 mmol/L (98-107); Estimated CRCL calculation 85 ml/min; Estimated Glomerular Filt Rate > 60; Glucose 73 mg/dL (65-110); Potassium 4.2 mmol/L (3.4-5.0); Sodium 138 mmol/L (137-145)
--- NOTE | 2023-05-02 00:44 | ED.GENADULT ---
HPI - General Adult General Chief complaint: [employer] <Alina Mc PA-C - Last Filed: 05/02/23 03:49> Stated complaint: retained placenta <SAL Cantu Last Filed: 05/02/23 03:49> Time Seen by Provider: 05/02/23 00:28 <SAL Cantu Last Filed: 05/02/23 03:49> Source: patient and old records reviewed <SAL Cantu Last Filed: 05/02/23 03:49> Mode of arrival: ambulatory <SAL Cantu Last Filed: 05/02/23 03:49> Limitations: no limitations <Alina Mc PA-C - Last Filed: 05/02/23 03:49> History of Present Illness HPI narrative: Patient is a 22-year-old female who presents to the ED with lower abdominal pain and vaginal bleeding. Patient reports she had a baby in December via . She states her first cycle afterwards was very foul smelling. She has had intermittent bleeding since then which has been foul-smelling. She has been previously prescribed Flagyl for BV. She then passed a strange piece of tissue vaginally and began having lower abdominal pain and cramping on . She f/u with Dr. Brasher and had an ultrasound in office which was potentially concerning for retained placenta. She was advised to follow-up with him on Wednesday for possible repeat ultrasound and possible D&C on Wednesday. Patient reports having worsening lower abdominal pain today, along with nausea and vomiting. She states she is unable to keep down any food or drink. She called the office and was referred here for further evaluation. Patient denies any fever. Denies dysuria, hematuria. <SAL Cantu Last Filed: 05/02/23 03:49> Related Data Home medications: Home Medications Medication Instructions Recorded Confirmed sertraline 50 mg tablet mg 05/02/23 <SAL Cantu Last Filed: 05/02/23 03:49> Allergies/adverse reactions: Allergies Allergy/AdvReac Type Severity Reaction Status Date / Time No Known Allergies Allergy Verified 05/02/23 00:26 <Alina Mc PA-C - Last Filed: 05/02/23 03:49> Review of Systems Review of Systems: CONSTITUTIONAL: Denies fever, chills, or sweats. CARDIOVASCULAR: Denies chest pain. RESPIRATORY: Denies dyspnea. GASTROINTESTINAL: See HPI. GENITOURINARY: See HPI. SKIN: Denies rash or itching. MUSCULOSKELETAL: Denies back pain, joint pain, or myalgia. <Alina Mc PA-C - Last Filed: 05/02/23 03:49> All systems reviewed & are unremarkable except as noted in HPI and below <Alina Mc PA-C - Last Filed: 05/02/23 03:49> PMFSH Past Medical History Medical History: Medical History No acute medical problems Overweight (BMI 25.0-29.9) Preeclampsia and not yet delivered <Alina Mc PA-C - Last Filed: 05/02/23 03:49> Family History Family History: Family History Grandparent Diabetes mellitus Other No active medical problems <Alina Mc PA-C - Last Filed: 05/02/23 03:49> Social History Social History: Social History Smoking status: Current some day smoker Tobacco type: cigarettes and e-cigarettes/vaping Substance use: never Lack of Transportation: No Lack of Food: Never True Current Housing: I Have Housing Concerned About Future Housing: No Difficulty Paying Gas/Electric Bills: No Difficulty Paying for Meds: No Currently Unemployed: YES Education: High School Diploma/GED Difficulty w/ Childcare or Family Care: No Spiritual care concerns: No <Alina Mc PA-C - Last Filed: 05/02/23 03:49> Exam Narrative: GENERAL: Well appearing, well-nourished, non-toxic, in no acute distress. HEAD: Normocephalic, atraumatic. NECK: Supple. No adenopathy, no masses. RESPIRA
[2023-05-02 00:50] LABS: Beta HCG Quantitative < 2.39 mIU/ML
[2023-05-02] MEDS: SODIUM CHLORIDE 0.9% IV 1,000 ML 999 ML IV CONT (01:22)
[2023-05-02 01:23] LABS: Appearance Urine Clear (Clear); Bilirubin Urine Negative (Negative); Blood Urine Negative (Negative); Color Urine Yellow (Yellow); Glucose Urine UA Negative (Negative); Ketones Urine Negative (Negative); Leukocyte Esterase Ur Negative LEU/UL (Negative); Nitrate Urine Negative (Negative); Protein Urine Negative (Negative); Specific Grav Ur 1.008 (1.001-1.035); Urobilinogen Urine 0.2 mg/dL (<2.0)
[2023-05-02] MEDS: MORPHINE SULFATE (*CRX) 2 MG/ML INJ IV PUSH (01:23)
[2023-05-02] MEDS: ONDANSETRON INJ 4 MG/2 ML VIAL IV PUSH ×2 (01:23→05:46)
[2023-05-02 01:44] LABS: Add Urine Microscopic? NO
[2023-05-02 02:08] LABS: Lactic Acid Reflex 0.7 mmol/L (0.7-2.0)
== END 2023-05-02 06:14 | disposition home or self-care (01) ==
PROVIDERS: Physician Assistant; Emergency Provider Emergency Medicine
DX: R10.30 Lower abdominal pain, unspecified (principal); R11.2 Nausea with vomiting, unspecified; E66.3 Overweight; Z68.25 Body mass index [BMI] 25.0-25.9, adult; F17.210 Nicotine dependence, cigarettes, uncomplicated; F17.290 Nicotine dependence, other tobacco product, uncomplicated; R93.41 Abnormal radiologic findings on diagnostic imaging of renal pelvis, ureter, or bladder
CPT/HCPCS: 36415; 74177; 80053; 81003; 83605; 84702; 85025; 96361; 96374; 96375; 96376; 99284; J2270; J2405; J7030; Q9967

== ENCOUNTER 2023-05-05 00:27 | Day surgery (SDC) | payer BC, SELFPAY ==
[2023-05-03 14:20] VITALS: BMI 23.8
--- NOTE | 2023-05-03 14:26 | PC.NURSE ---
Report to the Outpatient Waiting Room, entrance under the green pavilion located off [facility], at time 0715 on date 05/05/23. Planned Procedure Time: 0915. Time changes happen often and if your time is changed the preop area will call you the afternoon before. - You and your visitor will be asked to self-screen and do not enter if you have any COVID symptoms. - A mask is optional within the hospital at this time. Patients may have clear liquids (water, carbonated beverages, clear teas, apple juice) until 3 hours prior to surgery with a maximum of 20 ounces. - No food from midnight until time of surgery Take the following medications with a SIP of water the morning of surgery: SERTRALINE, ANTIBIOTICS DO NOT STOP ANY OF YOUR OTHER PRESCRIPTION MEDICATIONS PRIOR TO SURGERY ?EXCEPT THE FOLLOWING Medications to discontinue per physician: N/A Date to take last dose: N/A Please no make-up, nail gambian, hairspray, perfume, deodorant, or body powder the day of surgery. No jewelry (including any body piercings) or valuables the day of surgery, leave them at home. Please take a shower or bath the night before, or the morning of, surgery with an antibacterial soap. Wear comfortable, loose fitting clothing. - Jewelry must be removed prior to entering the operating room. Rings and piercings that are not removed may be cut off. - The hospital will not accept responsibility for valuables. - Please leave all valuables, including medications, at home the day of surgery. If you are going home after surgery, a licensed regional truck driver must drive you home. - NO public transportation without another adult if you receive anesthesia. - We recommend that an adult stay with you for 24 hours following discharge. - We also recommend that you do not drive, make important decision, drink alcoholic beverages, or take any drugs that were not prescribed by your health care provider for at least 24 hours after your discharge time. Follow any additional instructions given to you from your surgeon. If you or anyone in your household have experienced Covid symptoms in the past week, please notify your surgeon or the nurse liaison at the phone number below for possible testing. Telephone instructions given to PT - LAYLA READ and asked if any additional questions and then verbalized understanding. Patient advised to call surgeon office or pre surgery nurse liaison [phone] if any additional questions.
--- NOTE | 2023-05-04 14:12 | WPDANESEPPF ---
Anes - Initial Pre Proc Eval Procedure: Operation Date: 05/05/23 09:15 Proposed Procedures p Hysteroscopy, Dilation and Curettage - Jessica Brasher MD Date/Time: 05/04/23 14:12 Surgeon: Jessica Brasher MD Pre Op Diagnosis: retained placenta, 3rd stage hemorrhage Patient Data Age: 22 Gender: F Height: 1.65 m Weight: 64.9 kg Allergies Allergy/AdvReac Type Severity Reaction Status Date / Time No Known Allergies Allergy Verified 05/05/23 07:25 Home Medications Medication Instructions Recorded Confirmed Type ondansetron 4 mg disintegrating 4 mg PO Q8H PRN nausea and 05/02/23 05/03/23 Rx tablet vomiting #20 tabs doxycycline hyclate 100 mg capsule 100 mg PO BID 05/03/23 05/03/23 History metronidazole 500 mg tablet 500 mg PO BID 05/03/23 05/03/23 History sertraline 100 mg tablet 100 mg PO DAILY 05/03/23 05/03/23 History Patient hx anesthesia problems: none Family hx anesthesia problems: none Results Review: All pre-operative results and documents have been reviewed as part of the pre-operative evaluation. [facility] Past Medical History Medical History (Updated 05/04/23 @ 14:12 by Ruben Rosen DO) Anxiety Depression No acute medical problems Overweight (BMI 25.0-29.9) Preeclampsia and not yet delivered Scoliosis Family History Family History Grandparent Diabetes mellitus Other No active medical problems Social History Social History Smoking status: Current every day smoker Tobacco type: e-cigarettes/vaping Alcohol intake: never Substance use: never Substance use type: does not use Lack of Transportation: No Lack of Food: Never True Current Housing: I Have Housing Concerned About Future Housing: No Difficulty Paying Gas/Electric Bills: No Difficulty Paying for Meds: No Currently Unemployed: YES Education: High School Diploma/GED Difficulty w/ Childcare or Family Care: No Living arrangements: with family Spiritual care concerns: No Anes - Eval Final PreProcedure Day of Procedure 05/04/23 14:12 Patient weight: normal Heart: regular rate and rhythm Lungs: clear to auscultation and normal air movement Airway: Mallampati scale class II Neurological: alert and oriented Last oral intake: >/= 8 hours ASA classification: II Emergent: no Anesthetic plan: proceed Anesthesia type and monitoring: general GIVS and standard monitoring Results Review: All pre-operative results and documents have been reviewed as part of the pre-operative evaluation. Informed Consent: The patient's anesthetic plan and its attendant risks and benefits were discussed with the patient/family/POA. Questions were solicited and answers provided to the satisfaction of the patient/family/POA.
[2023-05-05] VITALS (9 sets, daily range): BP systolic 106–134; BP diastolic 58–89; PULSE 50–71; RESP 12–20; TEMP 35.6–36; O2SAT 97–100
[2023-05-05] MEDS: ACETAMINOPHEN 500 MG TABLET 1000 MG PO (07:27)
[2023-05-05] MEDS: LACTATED RINGERS 1,000 ML 30 ML IV CONT ×2 (07:52→10:54)
--- NOTE | 2023-05-05 08:04 | WPDHPUPDATE1 ---
History and Physical Update Update Date/Time: 05/05/23 08:04 History and Physical has been reviewed, including an updated exam of the patient. There are NO changes in the patient's condition. Risks, benefits, and alternatives have been discussed and questions answered. Patient agrees to proceed with procedure.
--- NOTE | 2023-05-05 09:37 | P.OP_ITS ---
Procedure Note - Detailed Date of Procedure 05/05/23 Pre-op Diagnosis retained placenta, 3rd stage hemorrhage Post-op Diagnosis Same Procedure Performed Hysteroscopy D&C Surgeon Jessica Brasher MD Anesthesia MAC Indications abnormal uterine bleeding Description of Procedure the patient was taken the operating room. She was prepped and draped in the dorsal lithotomy position after induction of mac anesthesia. A speculum was placed in the vagina. The cervix was grasped with a tenaculum. The cervix was dilated about 1 cm. The hysteroscope was inserted. The intrauterine cavity and endocervix were evaluated. Hysteroscope was withdrawn. A medium-size c urette was used to curettage all the surfaces were within the endometrial cavity. the sample was collected on Telfa and sent to pathology. The hysteroscope was reinserted and the above findings were noted. Patient tolerated the procedure well. The speculum and tenaculum were removed. She was taken recovery room in stable condition. Sponge lap and needle counts were correct x2. Estimated Blood Loss 40 Drains No Packing No Pathology Yes Complications No immediate complications Condition Stable Disposition PACU
[2023-05-05] MEDS: oxyCODONE HCL (*CRX) 5 MG TAB IR PO (10:56)
[2023-05-05] MEDS: ONDANSETRON INJ 4 MG/2 ML VIAL IV PUSH (11:48)
[2023-05-05] MEDS: SCOPOLAMINE 1.5 MG PATCH TRANSDERM (12:00)
--- NOTE | 2023-05-05 12:16 | SUR.PHASEII ---
Patient was unhooked from monitors because vitals were stable. Patient got dizzy and nauseated while getting dressed. RN gave her zofran and scop patch before discharge.
== END 2023-05-05 12:07 | disposition home or self-care (01) ==
PROVIDERS: Visit Provider Obstetrics & Gynecology
PROC: 0U5B8ZZ Destruction of Endometrium, Via Natural or Artificial Opening Endoscopic (ICD-10-PCS; CPT 58563; principal; 2023-05-05 09:15)
DX: N93.9 Abnormal uterine and vaginal bleeding, unspecified (principal); F41.9 Anxiety disorder, unspecified; F32.A Depression, unspecified; F17.290 Nicotine dependence, other tobacco product, uncomplicated
CPT/HCPCS: 58558; 88305; A9270; J2250; J2405; J2704; J7120